=== PATIENT | female | born 1970 | race African-American/Black ===

== ENCOUNTER → 2019-03-17 10:01 | Outpatient (CLI) | payer OTHER, SELFPAY ==
[2016-04-08 16:24] VITALS: BMI 36.5
== END ==
PROVIDERS: Family Provider Family Medicine; PCP Family Medicine; Referring Provider Family Medicine; Visit Provider Family Medicine
DX: H05.20 Unspecified exophthalmos (principal)
CPT/HCPCS: 36415

== ENCOUNTER 2021-02-06 08:41 | Emergency (ER) | payer OTHER, SELFPAY ==
[2021-02-06 08:42] VITALS: BP 133/91; PULSE 143; RESP 20; TEMP 35.6; O2SAT 100; BMI 37.8
--- NOTE | 2021-02-06 08:58 | EKG12_ITS ---
Test Reason : SOB Blood Pressure : / mmHG Vent. Rate : 124 BPM Atrial Rate : 124 BPM P-R Int : 134 ms QRS Dur : 078 ms QT Int : 308 ms P-R-T Axes : 069 043 -89 degrees QTc Int : 442 ms Sinus tachycardia Nonspecific T wave abnormality Abnormal ECG Confirmed by LUNA HILL, ROMY ([id number]), field map editor WING SONI ([id number]) on 02/08/2021 9:41:44 AM Referred By: TRINITY Confirmed By:ROMY CARRASCO MD
--- NOTE | 2021-02-06 08:59 | EDS_ITS ---
HPI History of Present Illness Chief Complaint: Cough Informant: patient Narrative Narrative: 50-year-old female presents to the emergency department reporting that she has been ill since . She went to work on and had a rapid Covid that was negative. She has developed body aches headache fever chills diarrhea cough shortness of breath. She notes nausea and has not had much to eat the past several days. She did receive a Covid vaccine. PFSH PFSH Home Medications acetaminophen-codeine 5 ml PO Q4H PRN 3 Days #100 ml 02/06/21 [Rx Last Taken Unknown] albuterol sulfate [Ventolin HFA] 2 puff INHALATION Q4H PRN PRN #1 inhaler 02/06/21 [Rx Last Taken Unknown] Allergy/AdvReac Type Severity Reaction Status Date / Time tetanus and diphtheria Allergy Swelling Verified 02/06/21 08:45 toxoids [tetanus & diphtheria toxoids] Social History (Updated 02/06/21 @ 09:[address] Lisandro Mayo, DO) Smoking Status: Never smoker substance use type: does not use ROS ROS ED Constitutional Constitutional ED: Reports chills, fever(s) and sweats; Denies weight loss Eyes Eyes: Denies change in vision or diplopia ENT ENT ED: Reports rhinorrhea; Denies ear pain or sore throat Cardiovascular Cardiovascular: Denies chest pain, orthopnea, palpitations or racing heartbeat Respiratory/Chest Respiratory/Chest: Reports cough, dyspnea, dyspnea on exertion and sputum; Denies orthopnea Gastrointestinal Gastrointestinal: Reports diarrhea and nausea; Denies abdominal pain or vomiting Genitourinary Genitourinary ED: Denies dysuria, hematuria or urinary frequency Musculoskeletal Musculoskeletal: Reports myalgias; Denies arthralgias Integumentary Denies abscess or rash Neurologic Neurologic: Reports headache(s); Denies weakness Psychiatric Psychiatric: Denies anxiety, depression, suicidal ideation or suicidal thoughts Endocrine Endocrinology: Denies polydipsia, polyphagia or polyuria Allergic/Immunologic Allergic/Immunologic ED: Denies mouth swelling, tongue swelling or urticaria EXAM Physical Exam Const Vital Signs: 02/06/21 08:42 02/06/21 09:15 02/06/21 09:17 Temperature 96.0 F L Temperature Source Temporal Pulse Rate 143 H 140 H Respiratory Rate 20 H 32 H Respiratory Effort Short of Breath Respiratory Pattern Tachypnea Blood Pressure 133/91 H 102/75 Blood Pressure Mean 105 84 Pulse Ox 100 100 Oxygen Delivery Method Room Air Room Air Room Air Positive well nourished, well developed and obese General Appearance ED: well developed Nutritional Appearance: obese HEENT Reports normocephalic, head/scalp atraumatic, TM's clear and moist mucous membranes Negative for trauma Tympanic Membrane ED: Yes TM's clear Eyes PERRL and EOMs intact bilaterally Neck no lymphadenopathy, supple and no JVD Resp Resp Narrative: Patient is tachypneic having coughing fits Auscultation: rhonchi and wheezes Cardio regular rate and no murmurs Rate: tachycardic GI normal to inspection, nondistended, normoactive bowel sounds and non-tender Palpation: soft Back/Spine no CVA tenderness and normal ROM Extremity normal to inspection General Extremety ED: Negative for edema General Extremity: Negative for edema Neuro oriented x3 and CN's II-XII intact bilaterally Sensorium / Orientation: alert Motor Exam: strength 5/5 throughout Psych mental status grossly normal Mood & Affect: Negative for depressed or tearful Skin no rashes or lesions noted and no wounds MDM MDM MDM Narrative Medical decision making narrative: Basic blood work showed a white count of 5.9 hemoglobin 10.8 lactic acid is 2.2 creatinine 1.16 chest x-ray is clear. Patient received IV fluids Toradol a DuoNeb and a dose of Ativan. Patient was experiencing muscle spasms of her abdomen and could not relax. I do not think the lactic acid represents sepsis I think it is more of the motor activity she was doing. Patient be discharged home however write for albuterol MDI with spacer and time with codeine she declines monoclonal antibody treatment. Lab Data Attestation: I reviewed the patient's lab results. Labs: Laboratory Results - last 24 hr 02/06/21 02/06/21 02/06/21 09:05 09:05 09:05 WBC 5.9 RBC 3.70 L Hgb 10.8 L Hct 29.8 L MCV 80.5 L MCH 29.2 MCHC 36.2 H RDW Std Deviation 46.6 H RDW Coeff of Gloria 15.9 H Plt Count 163 MPV 9.3 Immature Gran % (Auto) 0.300 Neut % (Auto) 62.4 Lymph % (Auto) 27.0 [place] % (Auto) 10.1 H Eos % (Auto) 0.0 Baso % (Auto) 0.2 Absolute Neuts (auto) 3.7 Absolute Lymphs (auto) 1.58 Nucleated RBC % 0 Sodium 136 Potassium 3.5 Chloride 102 Carbon Dioxide 24.0 Anion Gap 10 BUN 11 Creatinine 1.16 H Estim Creat Clear Calc 50.10 Est GFR (MDRD) Af Amer 63 Est GFR (MDRD) Non-Af 52 L BUN/Creatinine Ratio 9.5 L Glucose 121 H Lactic Acid 2.2 H* Calcium 8.9 Total Bilirubin 1.30 H AST 29 ALT 20 Alkaline Phosphatase 59 Troponin I High Sens 9 Total Protein 8.8 H Albumin 3.8 Globulin 5.0 H Albumin/Globulin Ratio 0.8 L Radiography Diagnostic Testing: Clinical Impression(s) from Imaging Studies Chest X-Ray 02/06/21 09:26 IMPRESSION: Normal x-ray examination of the chest. Electronically Signed: Chico Belle MD at 9:57 EDT Tel , Service support , EKG Initial EKG: Attestation: I personally reviewed and interpreted this EKG as follows: Comments: Sinus tachycardia with a ventricular rate of 124 bpm Discharge Plan Triage Chief Complaint: Cough ED Provider: Lisandro Mayo Dx/Rx/DC Orders Clinical Impression: COVID-19 Instructions: Coronavirus Disease 2019 (COVID-19): Caring for Yourself or Others Prescriptions: New albuterol sulfate [Ventolin HFA] 1 INHALER inhaler 2 puff inhalation Q4H PRN PRN (Reason: Wheezing) Qty: 1 RF: 0 acetaminophen-codeine 120 mg-12 mg /5 mL (5 mL) solution 5 ml PO Q4H PRN (Reason: pain) 3 Days Qty: 100 RF: 0 Primary Care Provider: Eduin Cortez Referrals: Isaac Monsivais III, MD [STAFF PHYSICIAN] - Activity Restrictions/Additional Instructions: Follow-up with your primary care physician as needed. Disposition Disposition: Home, Self Care
[2021-02-06] MEDS: Ipratropium/Albuterol Sulfate 3 ML AMPUL.NEB INHALATION (09:13)
[2021-02-06] MEDS: 0.9% Normal Saline 1,000 ML 1000 ML IV (09:13)
[2021-02-06] MEDS: Ketorolac 30 MG/ML Syringe IV (09:13)
[2021-02-06 09:14] LABS: Absolute Lymphocyte Count 1.58 X10^3/uL (0.83-4.51); Absolute Neutrophil Count 3.7 X10^3/uL (2.0-7.7); Basophil# 0.01 X10^3/uL; Basophil% 0.2 % (0-1); Hematocrit 29.8 % (37-47); Hemoglobin 10.8 g/dL (12.0-15.0); Lymphocyte # 1.58 X10^3/ul (0.83-4.51); Mean Corp Hgb Conc 36.2 g/dL (32-36); Mean Corpuscular Hgb 29.2 pg (27.0-32.0); Mean Corpuscular Volume 80.5 fL (81-99); Mean Platelet Vol. 9.3 fl (6.2-12.0); Monocyte# 0.59 X10^3/uL; Monocyte% 10.1 % (0-10); NRBC Flagged by Analyzer 0 % (0-5); Neutrophil # 3.65 X10^3/uL (2.7-7.7); Neutrophil % 62.4 % (47-70); Platelet Count 163 K/mm3 (150-450); RBC Distribution Width CV 15.9 % (11.6-14.6); RBC Distribution Width SD 46.6 fl (35.1-43.9); White Blood Count 5.9 K/mm3 (4.4-11.0)
[2021-02-06 09:15] VITALS: BP 102/75; PULSE 122; PULSE 140; RESP 20; RESP 32; O2SAT 100
[2021-02-06 09:17] VITALS: O2SAT 100
--- NOTE | 2021-02-06 09:26 | RAD_ITS ---
STUDY: X-RAY CHEST REASON FOR EXAM: Female, 50 years old. cough TECHNIQUE: Single AP portable view of the chest. COMPARISON: 06/06/2014 FINDINGS: The lungs are clear and expanded. There is no demonstrated pleural abnormality. Normal size heart. Normal mediastinum and dominic. Normal visualized pulmonary arteries. Normal visualized aortic arch and descending thoracic aorta. Normal visualized thoracic spine. Normal visualized ribs, clavicles, and shoulders. There is no demonstrated abnormality of the visualized soft tissue structures of the upper abdomen. RAD/Chest 1 View (Portable) IMPRESSION: Normal x-ray examination of the chest. Electronically Signed: Chico Belle MD at 9:57 EDT Tel , Service support ,
[2021-02-06 09:32] LABS: ALB/GLOB Ratio 0.8 RATIO (0.9-2.4); AST(SGOT) 29 U/L (15-37); Alanine Aminotransfer ALT/SGPT 20 U/L (13-56); Albumin, Serum 3.8 g/dL (3.2-5.0); Alkaline Phosphatase 59 U/L (45-117); Anion Gap 10 (5-15); BUN 11 mg/dL (7-18); BUN/Creat Ratio 9.5 RATIO (10-20); Calcium,Total 8.9 mg/dL (8.5-10.1); Chloride 102 mmol/L (98-107); Creatinine, Serum 1.16 mg/dL (0.55-1.02); EST Glomerular Filtration Rate 52 mL/min (>60); Est Glom Filt Rate - Afr Amer 63 mL/min (>60); Glucose 121 mg/dL (74-106); Potassium 3.5 mmol/L (3.5-5.1); Protein, Total 8.8 g/dL (6.4-8.2); Sodium Level 136 mmol/L (136-145); Troponin-I HS 9 pg/mL (3.0-54.0)
[2021-02-06 09:37] LABS: Lactic Acid 2.2 mmol/L (0.4-1.9)
[2021-02-06] MEDS: LORazepam 2 MG/ML Syringe 1 MG IV (09:55)
[2021-02-06 10:14] VITALS: BP 127/75; PULSE 115; RESP 19; O2SAT 91
[2021-02-06 13:11] LABS: Reflex Lactate? Y
== END 2021-02-06 10:14 | disposition home or self-care (01) ==
PROVIDERS: Emergency Provider Emergency Medicine; PCP Family Medicine
DX: U07.1 COVID-19 (principal); E66.9 Obesity, unspecified
CPT/HCPCS: 71045; 80053; 83605; 84484; 85025; 87426; 93005; 94640; 96374; 96375; 99284; J7030; A4216

== ENCOUNTER 2021-02-18 11:24 | Inpatient (IN) | payer OTHER, SELFPAY ==
[2021-02-18] VITALS (11 sets, daily range): BP systolic 107–137; BP diastolic 55–74; PULSE 110–135; RESP 17–20; TEMP 35.8–38.7; O2SAT 93–100; BMI 40.5; BMI 36.6
--- NOTE | 2021-02-18 11:53 | CT_ITS ---
STUDY: CTA CHEST REASON FOR EXAM: Female, 50 years old. Chest pain, covid RADIATION DOSAGE (If Supplied By Facility): CTDIvol = ( 11.84 ) mGy, DLP = ( 372.65 ) mGycm TECHNIQUE: The examination was performed with the intravenous administration of IV 100ML ISOVUE 370. Post-processing of the angiographic images was performed, with multiplanar reformation and 3D reconstruction. Individualized dose optimization techniques were used for this CT. COMPARISON: Comparison is made with prior study dated 06/06/2014. FINDINGS: Normal enhancement of the main pulmonary artery and right and left pulmonary arteries. Normal enhancement of the bilateral peripheral pulmonary arteries. There is no demonstrated pulmonary embolism. Normal thoracic aorta and visualized great vessels. There is no demonstrated aortic dissection. Normal heart and pericardium. Normal mediastinum. Normal hilar regions. Normal visualized trachea and bronchi. The lungs are well expanded. Consolidation in the right lower lobe. Patchy infiltrate in the left lower lobe. Tiny bilateral pleural effusions. Normal chest wall structures. There are degenerative changes of thoracic spine. Normal visualized upper abdomen. CT/CTA Chest W/WO Contrast IMPRESSION: Bibasilar infiltrates more prominent on the right lung base. Tiny bilateral pleural effusions. Electronically Signed: Germán Luther MD at 13:44 EST , Service support ,
--- NOTE | 2021-02-18 11:53 | EKG12_ITS ---
Test Reason : SOB Blood Pressure : / mmHG Vent. Rate : 123 BPM Atrial Rate : 123 BPM P-R Int : 152 ms QRS Dur : 074 ms QT Int : 300 ms P-R-T Axes : 065 035 -72 degrees QTc Int : 429 ms Sinus tachycardia T wave abnormality, consider inferior ischemia T wave abnormality, consider anterolateral ischemia Abnormal ECG Confirmed by ASIYA HILL, NATALIYA ([id number]), supervising editor trailer WING SONI ([id number]) on 02/21/2021 11:23:19 AM Referred By: [facility] Confirmed By:NATALIYA BRADEN MD
--- NOTE | 2021-02-18 11:55 | EDS_ITS ---
HPI History of Present Illness Chief Complaint: Shortness of Breath Informant: patient Onset/Context/Timing Onset: Days Context: Gradual Onset Current Severity: Moderate Maximum Severity: Severe Narrative Narrative: Patient present secondary to chest pain and shortness of breath. Patient tested positive for Covid on February 06. She states her last several days she started monitoring her temperature and noted it to be mildly elevated. Last several days she has had right upper chest pain and increased shortness of breath. She reports mild cough with occasional clear sputum production. She does report some nausea. [facility] Medical History COVID Pneumonia Home Medications acetaminophen-codeine 5 ml PO Q4H PRN 3 Days #100 ml 02/06/21 [Rx Last Taken Unknown] albuterol sulfate [Ventolin HFA] 2 puff INHALATION Q4H PRN PRN #1 inhaler 02/06/21 [Rx Last Taken Unknown] Allergy/AdvReac Type Severity Reaction Status Date / Time tetanus and diphtheria Allergy Swelling Verified 02/18/21 11:38 toxoids [tetanus & diphtheria toxoids] Iodinated Contrast Media AdvReac Mild Vomiting Verified 02/18/21 13:28 Social History Smoking Status: Never smoker substance use type: does not use ROS ROS ED Constitutional Constitutional ED: Reports fever(s); Denies chills Eyes Eyes: Denies change in vision ENT ENT ED: Denies sore throat Cardiovascular Cardiovascular: Reports chest pain Respiratory/Chest Respiratory/Chest: Reports cough, dyspnea and sputum Gastrointestinal Gastrointestinal: Reports nausea; Denies abdominal pain, diarrhea or vomiting Genitourinary Genitourinary ED: Denies dysuria Musculoskeletal Musculoskeletal: Reports back pain Integumentary Denies rash Neurologic Neurologic: Denies headache(s) or weakness Allergic/Immunologic Allergic/Immunologic ED: Denies urticaria EXAM Physical Exam Const Vital Signs: 02/18/21 11:26 02/18/21 11:39 02/18/21 13:39 Temperature 96.5 F L 98.9 F Temperature Source Temporal Temporal Pulse Rate 135 H 117 H Respiratory Rate 18 20 H Respiratory Effort Normal Respiratory Depth Normal Respiratory Pattern Normal Blood Pressure 137/70 H 121/73 H Blood Pressure Mean 92 89 Pulse Ox 96 94 Oxygen Delivery Method Room Air Room Air Oxygen Flow Rate (L/min) 02/18/21 15:11 Temperature 98.9 F Temperature Source Temporal Pulse Rate 123 H Respiratory Rate 20 H Respiratory Effort Respiratory Depth Respiratory Pattern Blood Pressure 116/66 Blood Pressure Mean 82 Pulse Ox 100 Oxygen Delivery Method Nasal Cannula Oxygen Flow Rate (L/min) 2 Positive well nourished and well developed General Appearance ED: well developed HEENT Reports moist mucous membranes Eyes PERRL and EOMs intact bilaterally Neck supple Chest Wall inspection of chest normal and palpation of chest normal Resp normal respiratory effort and clear to auscultation bilaterally Cardio regular rhythm Rate: tachycardic GI normal to inspection, nondistended, normoactive bowel sounds and non-tender Palpation: soft Extremity normal to inspection Neuro oriented x3 Sensorium / Orientation: alert Psych mental status grossly normal Skin no rashes or lesions noted MDM MDM MDM Narrative Medical decision making narrative: Lab work, EKG, CTA of the chest obtained. Patient was given morphine and Zofran for pain. Lab Data Attestation: I reviewed the patient's lab results. Labs: Laboratory Results - last 24 hr 02/18/21 02/18/21 02/18/21 12:14 12:14 12:14 WBC 12.0 H RBC 2.95 L Hgb 7.8 L Hct 23.0 L MCV 78.0 L MCH 26.4 L MCHC 33.9 RDW Std Deviation 52.5 H RDW Coeff of Gloria 18.8 H Plt Count 375 MPV 9.5 Immature Gran % (Auto) 0.600 Neut % (Auto) 83.4 H Lymph % (Auto) 9.[address] [facility] % (Auto) 6.6 Eos % (Auto) 0.2 Baso % (Auto) 0.2 Absolute Neuts (auto) 10.0 H Absolute Lymphs (auto) 1.08 Nucleated RBC % 0 Sodium 134 L Potassium 3.5 Chloride 101 Carbon Dioxide 30.0 Anion Gap 3 L BUN 11 Creatinine 1.07 H Estim Creat Clear Calc 47.46 Est GFR (MDRD) Af Amer 70 Est GFR (MDRD) Non-Af 58 L BUN/Creatinine Ratio 10.3 Glucose 119 H Lactic Acid 1.2 Calcium 8.8 Total Bilirubin 2.10 H AST 14 L ALT 10 L Alkaline Phosphatase 51 Troponin I High Sens 4 Total Protein 8.4 H Albumin 2.8 L Globulin 5.6 H Albumin/Globulin Ratio 0.5 L Radiography Diagnostic Testing: Clinical Impression(s) from Imaging Studies Chest CTA 02/18/21 11:53 IMPRESSION: Bibasilar infiltrates more prominent on the right lung base. Tiny bilateral pleural effusions. Electronically Signed: Germán Luther MD at 13:44 EST , Service support , EKG Initial EKG: Attestation: I personally reviewed and interpreted this EKG as follows: Interpretation: Sinus Tachycardia (Sinus tachycardia at 123 bpm. Lateral and inferior T inversions noted. No prior studies available for comparison.) Treatment and Re-Evaluation Comments:: Patient's lab work does reveal increased white count. Hemoglobin is noted to have dropped 3 g in the last 2 weeks. Chemistry studies unremarkable. Lactic acid normal. Troponin negative. CTA reveals bibasilar infiltrates worse on the right and tiny bilateral pleural effusions. With patient having elevated white count and a more focal infiltrate in the right base I did cover her with Rocephin and Zithromax. When I went back to reexamine the patient her oxygen saturation was 88% on room air. She was placed on nasal cannula and O2 sats came back up into the high 90s. Patient was taken off oxygen to go to the bedside commode. With this exertion she dropped her sats out into the 80s and did not quickly recover requiring placement of oxygen again. At this time I will speak with hospitalist. Discharge Plan Triage Chief Complaint: Shortness of Breath ED Provider: Lorena Jordan Dx/Rx/DC Orders Clinical Impression: Pneumonia, Hypoxia, COVID-19 Prescriptions: No Action albuterol sulfate [Ventolin HFA] 1 INHALER inhaler 2 puff inhalation Q4H PRN PRN (Reason: Wheezing) Qty: 1 RF: 0 acetaminophen-codeine 120 mg-12 mg /5 mL (5 mL) solution 5 ml PO Q4H PRN (Reason: pain) 3 Days Qty: 100 RF: 0 Primary Care Provider: Eduin Cortez Referrals: Eduin Cortez MD [Primary Care Provider] - Disposition Disposition: Acute Care [facility]
[2021-02-18] MEDS: Morphine 4 MG/ML Syringe IV (12:21)
[2021-02-18] MEDS: Ondansetron 4 MG/2 ML Vial IV ×2 (12:21→13:48)
[2021-02-18 12:46] LABS: Absolute Lymphocyte Count 1.08 X10^3/uL (0.83-4.51); Basophil# 0.02 X10^3/uL; Basophil% 0.2 % (0-1); Eosinophil# 0.02 X10^3/uL; Eosinophils% 0.2 % (0-5); Hemoglobin 7.8 g/dL (12.0-15.0); Lymphocyte # 1.08 X10^3/ul (0.83-4.51); Mean Corp Hgb Conc 33.9 g/dL (32-36); Mean Corpuscular Hgb 26.4 pg (27.0-32.0); Mean Platelet Vol. 9.5 fl (6.2-12.0); Monocyte# 0.79 X10^3/uL; Monocyte% 6.6 % (0-10); NRBC Flagged by Analyzer 0 % (0-5); Neutrophil # 10.04 X10^3/uL (2.7-7.7); Neutrophil % 83.4 % (47-70); Platelet Count 375 K/mm3 (150-450); RBC Distribution Width CV 18.8 % (11.6-14.6); RBC Distribution Width SD 52.5 fl (35.1-43.9); Red Blood Count 2.95 M/mm3 (4.2-5.4)
[2021-02-18 13:03] LABS: ALB/GLOB Ratio 0.5 RATIO (0.9-2.4); AST(SGOT) 14 U/L (15-37); Alanine Aminotransfer ALT/SGPT 10 U/L (13-56); Albumin, Serum 2.8 g/dL (3.2-5.0); Alkaline Phosphatase 51 U/L (45-117); Anion Gap 3 (5-15); BUN 11 mg/dL (7-18); BUN/Creat Ratio 10.3 RATIO (10-20); Calcium,Total 8.8 mg/dL (8.5-10.1); Chloride 101 mmol/L (98-107); Creatinine, Serum 1.07 mg/dL (0.55-1.02); EST Glomerular Filtration Rate 58 mL/min (>60); Est Glom Filt Rate - Afr Amer 70 mL/min (>60); Estimated Creatinine Clearance 47.46 ml/min; Globulin 5.6 g/dL (2.2-4.2); Glucose 119 mg/dL (74-106); Potassium 3.5 mmol/L (3.5-5.1); Protein, Total 8.4 g/dL (6.4-8.2); Sodium Level 134 mmol/L (136-145); Troponin-I HS 4 pg/mL (3.0-54.0)
[2021-02-18 13:07] LABS: Lactic Acid 1.2 mmol/L (0.4-1.9)
[2021-02-18] MEDS: HYDROmorphone 0.5 MG/0.5 ML SYRINGE IV (13:48)
[2021-02-18] MEDS: Ceftriaxone 1 GM/50 ML BAG IV (14:25)
--- NOTE | 2021-02-18 17:25 | PCS.PANDOC ---
PANDEMIC DOCUMENTATION INITIATED: Date:02/18/2021 Time: 1700
[2021-02-18] MEDS: Acetaminophen 325 MG Tablet 650 MG PO (17:46)
--- NOTE | 2021-02-18 18:19 | HP.PCM.HOS_ITS ---
HPI - General General Date of Admission: 02/18/21 HPI Narrative MIGUEL ANGEL REYES, is a 50 F who presents to the hospital with worsening shortness of breath, cough, and chest pain. She was diagnosed with Covid on 02/06/2021 with symptoms starting on 02/03/2021. At that time she was not hypoxic. She was offered monoclonal antibody infusion which she refused. She also is unvaccinated. For the last several days she has noticed that she has become more short of breath and that she had been having mildly elevated temperatures. She also has been having some chest pain in the right upper chest likely consistent with costochondritis secondary to all the coughing. She has had very little sputum production but what she has produces been clear. In the ER she was found to be hypoxic to 88% on room air and then with ambulation on room air she also dropped into the 80s as well necessitating 2 L of nasal cannula to be placed. [facility] Medical History (Updated 02/18/21 @ 18:[address] Charles Lee MD) Anemia COVID Migraines Non-smoker Pancreatitis Pneumonia Home Medications acetaminophen-codeine 5 ml PO Q4H PRN 3 Days #100 ml 02/06/21 [Rx Last Taken Unknown] albuterol sulfate [Ventolin HFA] 2 puff INHALATION Q4H PRN PRN #1 inhaler 02/06/21 [Rx Last Taken Unknown] Allergy/AdvReac Type Severity Reaction Status Date / Time tetanus and diphtheria Allergy Swelling Verified 02/18/21 11:38 toxoids [tetanus & diphtheria toxoids] Iodinated Contrast Media AdvReac Mild Vomiting Verified 02/18/21 13:28 Family History (Updated 02/18/21 @ 18:[address] Charles Lee MD) Other Cancer Heart disease Surgical History (Updated 02/18/21 @ 18:[address] Charles Lee MD) History of cholecystectomy Status post hysterectomy Social History Smoking Status: Never smoker substance use type: does not use ROS Constitutional Constitutional: Reports fever(s); Denies chills, fatigue or malaise Eyes Eyes: Denies blurry vision ENT HEENT: Denies headache(s) or nasal discharge Cardiovascular Cardiovascular: Reports chest pain; Denies dyspnea on exertion or syncope Respiratory/Chest Respiratory/Chest: Reports cough and shortness of breath at rest; Denies shortness of breath with exertion Gastrointestinal Gastrointestinal: Denies constipation, diarrhea, nausea or vomiting Genitourinary Genitourinary: Denies dysuria Neurologic Neurologic: Denies focal weakness, numbness or tremor(s) Psychiatric Psychiatric: Denies anxiety or depression Vital Signs Vital Signs Vital Signs: 02/18/21 11:26 02/18/21 11:39 02/18/21 13:39 Temperature 96.5 F L 98.9 F Temperature Source Temporal Temporal Pulse Rate 135 H 117 H Respiratory Rate 18 20 H Respiratory Effort Normal Respiratory Depth Normal Respiratory Pattern Normal Blood Pressure 137/70 H 121/73 H Blood Pressure Mean 92 89 Blood Pressure Source Blood Pressure Position Blood Pressure Location Pulse Ox 96 94 Oxygen Delivery Method Room Air Room Air Oxygen Flow Rate (L/min) 02/18/21 15:11 02/18/21 15:58 02/18/21 17:06 Temperature 98.9 F 98.9 F 99.6 F H Temperature Source Temporal Oral Temporal Pulse Rate 123 H 120 H 115 H Respiratory Rate 20 H 20 H 17 Respiratory Effort Respiratory Depth Respiratory Pattern Blood Pressure 116/66 111/72 118/74 Blood Pressure Mean 82 85 88 Blood Pressure Source Blood Pressure Position Blood Pressure Location Pulse Ox 100 100 100 Oxygen Delivery Method Nasal Cannula Room Air Nasal Cannula Oxygen Flow Rate (L/min) 2 2 2 02/18/21 17:57 Temperature 101.6 F H Temperature Source Oral Pulse Rate 116 H Respiratory Rate 18 Respiratory Effort Respiratory Depth Respiratory Pattern Blood Pressure 110/64 Blood Pressure Mean 79 Blood Pressure Source Monitor Blood Pressure Position Semi-Fowlers Blood Pressure Location Right Arm Pulse Ox 100 Oxygen Delivery Method Nasal Cannula Oxygen Flow Rate (L/min) 2 Weight Weight: 216 lb 12.8 oz Body Mass Index (BMI) 36.6 Physical Exam Const alert, oriented x3 and no apparent distress General Appearance: cooperative HEENT normocephalic Mouth: dry mucous membranes Eyes PERRL, EOMs intact bilaterally and conjunctivae normal Neck supple and no JVD Resp normal respiratory effort, no retractions and no use of accessory muscles Auscultation: diminished lung sounds; Negative for crackles, rales, rhonchi or wheezes Cardio regular rhythm, S1 normal heart sound, S2 normal heart sound and no murmurs Rate: tachycardic GI soft to palpation, non-tender and non-distended; Negative for hepatosplenomegaly Extremity no clubbing, cyanosis or edema Skin no rashes or lesions noted Neuro no focal motor deficits and no sensory deficits noted Psych affect normal Appearance: appropriate Results Lab / Micro Data Result Diagrams: 02/19/21 05:27 02/19/21 05:27 Labs: Laboratory Results - last 24 hr 02/18/21 12:14: WBC 12.0 H, RBC 2.95 L, Hgb 7.8 L, Hct 23.0 L, MCV 78.0 L, MCH 26.4 L, MCHC 33.9, RDW Std Deviation 52.5 H, RDW Coeff of Gloria 18.8 H, Plt Count 375, MPV 9.5, Immature Gran % (Auto) 0.600, Neut % (Auto) 83.4 H, Lymph % (Auto) 9.0 L, [place] % (Auto) 6.6, Eos % (Auto) 0.2, Baso % (Auto) 0.2, Absolute Neuts (auto) 10.0 H, Absolute Lymphs (auto) 1.08, Nucleated RBC % 0 02/18/21 12:14: Sodium 134 L, Potassium 3.5, Chloride 101, Carbon Dioxide 30.0, Anion Gap 3 L, BUN 11, Creatinine 1.07 H, Estim Creat Clear Calc 47.46, Est GFR (MDRD) Af Amer 70, Est GFR (MDRD) Non-Af 58 L, BUN/Creatinine Ratio 10.3, Glucose 119 H, Calcium 8.8, Total Bilirubin 2.10 H, AST 14 L, ALT 10 L, Alkaline Phosphatase 51, Troponin I High Sens 4, Total Protein 8.4 H, Albumin 2.8 L, Globulin 5.6 H, Albumin/Globulin Ratio 0.5 L 02/18/21 12:14: Lactic Acid 1.2 Radiology Impression Chest CTA 02/18/21 11:53 IMPRESSION: Bibasilar infiltrates more prominent on the right lung base. Tiny bilateral pleural effusions. Electronically Signed: Germán Luther MD at 13:44 EST , Service support , Assessment & Plan Assessment/Plan (1) Acute respiratory failure with hypoxia: (2) Pneumonia due to COVID-19 virus: PLAN: 1. Acute hypoxic respiratory failure secondary to COVID-19 pneumonia with possible bacterial superinfection and new undifferentiated anemia -We will obtain a sputum culture and start her on azithromycin and Rocephin given the fact that she had been stable and then suddenly worsened over the last 3 days with fevers and an elevated white count -She is outside the window for remdesivir and is not severe enough to warrant baricitinib. We will start her on Decadron -Continue with nasal cannula at 2 L, and will do an ambulatory pulse ox in the morning -We will obtain iron studies to further evaluate her anemia and monitor DVT: Lovenox Charges/Coding Visit Charges Inpatient E&M: 29963 Init Hosp L2
[2021-02-18 19:26] LABS: Ferritin 505 ng/mL (8-252); Iron 23 ug/dL (50-170); Iron Binding Capacity,Total 187 ug/dL (250-450); PERCENT IRON SATURATION 12.3 % (15.0-55.0)
[2021-02-18] MEDS: Enoxaparin 40 MG/0.4 ML Syringe SC (20:31)
[2021-02-18] MEDS: guaiFENesin 10 ML UDC (200MG/10ML) PO (22:41)
[2021-02-18] MEDS: MELATONIN 3 MG TABLET PO (22:54)
[2021-02-19] VITALS (13 sets, daily range): BP systolic 103–131; BP diastolic 54–71; PULSE 94–124; RESP 16–20; TEMP 36.7–38.9; O2SAT 91–98
[2021-02-19] MEDS: Acetaminophen 325 MG Tablet 650 MG PO ×2 (02:43→11:10)
[2021-02-19] MEDS: guaiFENesin 10 ML UDC (200MG/10ML) PO ×2 (02:43→11:10)
[2021-02-19 06:12] LABS: Absolute Lymphocyte Count 1.18 X10^3/uL (0.83-4.51); Absolute Neutrophil Count 10.2 X10^3/uL (2.0-7.7); Basophil# 0.02 X10^3/uL; Basophil% 0.2 % (0-1); Eosinophil# 0.02 X10^3/uL; Eosinophils% 0.2 % (0-5); Hematocrit 19.6 % (37-47); Hemoglobin 6.7 g/dL (12.0-15.0); Lymphocyte # 1.18 X10^3/ul (0.83-4.51); Lymphocyte % 9.6 % (19-41); Mean Corp Hgb Conc 34.2 g/dL (32-36); Mean Corpuscular Hgb 26.6 pg (27.0-32.0); Mean Corpuscular Volume 77.8 fL (81-99); Mean Platelet Vol. 9.4 fl (6.2-12.0); Monocyte# 0.82 X10^3/uL; Monocyte% 6.7 % (0-10); NRBC Flagged by Analyzer 0 % (0-5); Neutrophil # 10.19 X10^3/uL (2.7-7.7); Neutrophil % 82.8 % (47-70); Platelet Count 317 K/mm3 (150-450); RBC Distribution Width SD 54.1 fl (35.1-43.9); Red Blood Count 2.52 M/mm3 (4.2-5.4); White Blood Count 12.3 K/mm3 (4.4-11.0)
[2021-02-19 06:45] LABS: Anion Gap 6 (5-15); BUN 11 mg/dL (7-18); BUN/Creat Ratio 10.5 RATIO (10-20); Calcium,Total 8.7 mg/dL (8.5-10.1); Chloride 99 mmol/L (98-107); Creatinine, Serum 1.05 mg/dL (0.55-1.02); EST Glomerular Filtration Rate 59 mL/min (>60); Est Glom Filt Rate - Afr Amer 71 mL/min (>60); Estimated Creatinine Clearance 55.35 ml/min; Glucose 123 mg/dL (74-106); Potassium 3.8 mmol/L (3.5-5.1); Sodium Level 134 mmol/L (136-145)
[2021-02-19 06:50] LABS: Platelet Count 333 K/mm3 (150-450); RET-HE 23.5 pg (30-35); Reticulocyte Count 4.08 % (0.5-1.5)
[2021-02-19 07:22] LABS: Ferritin 577 ng/mL (8-252); Iron 25 ug/dL (50-170); Iron Binding Capacity,Total 178 ug/dL (250-450); LDH 252 U/L (84-246)
[2021-02-19] MEDS: dexAMETHasone 4 MG Tablet 6 MG PO (11:18)
[2021-02-19] MEDS: Azithromycin 250 MG Tablet 500 MG PO (11:19)
[2021-02-19] MEDS: Ceftriaxone 1 GM/50 ML BAG IV (11:19)
[2021-02-19] MEDS: Enoxaparin 40 MG/0.4 ML Syringe SC (11:19)
--- NOTE | 2021-02-19 12:08 | CASEMGMT ---
OPAL DELGADILLO Assessment: Face to Face with pt for initial transition planning/care coordination assessment. OPAL DELGADILLO introduced self and role at [facility], pt voices understanding and consents to assessment. Pt is A/O x4 and answers all questions appropriately at this time. Pt lying in bed on RA in no distress. Care providers, pharmacy, and demographics verified/updated. Admitting Dx: COVID PCP:Diego Specialists: Pt denies. Preferred Pharmacy: [facility] Insurance: [employer] Prescription Benefit: yes LW/HPOA: Pt states she has a LW/DPOA and her DPOA is her son Jayro Kearney. LNOK: Jayro Kearney, lalo Living Arrangements: Pt lives alone in a two story townhouse with 6 steps to enter. Pt reports she is I in ADL's and denies concerns at home. Transportation: Pt drives self and denies concerns with transportation. DME/HHC/SNF: Pt denies having any DME, hx of HHC or SNF stays. Pt was first tested for COVID at [facility] ER, she states her friends have been providing her with meals and supplies needed. Unable to look up DME providers on pt insurance website and office closed when OPAL DELGADILLO called. Should pt be dc'd on home O2, she chooses [employer]. OPAL DELGADILLO will follow up on Sunday to see if in network. Pt states no concerns with going home at time of dc. Pt states no further concerns/needs. CM to follow. Advised pt to ask CM if any further question/concerns/needs arise, voices understanding. Pt Goal: Home Plan: Home
[2021-02-19] MEDS: Ibuprofen 200 MG Tablet PO ×3 (13:42→22:04)
--- NOTE | 2021-02-19 15:18 | PN.HOSP_ITS ---
Subjective Subjective Doing well, her hemoglobin has dropped further and orders for transfusion were placed overnight. Iron studies are low but indeterminant and further work-up for hemolytic anemia is underway Objective Data Objective Data Vital Signs: Vital Signs Temp Pulse Resp BP Pulse Ox 100.6 F H 115 H 16 123/63 H 93 02/19/21 13:39 02/19/21 13:39 02/19/21 13:39 02/19/21 13:39 02/19/21 13:39 Oxygen Flow Rate (L/min) 1 Oxygen Delivery Method Room Air Weight: 216 lb 12.8 oz Body Mass Index (BMI) 36.6 Intake & Output: Intake and Output for Last 24 Hours 02/18/21 02/19/21 02/20/21 03:59 03:59 03:59 Intake Total 305 / 305 578.5 / 578.5 Balance 305 / 305 578.5 / 578.5 Lab / Micro Data Result Diagrams: 02/19/21 05:27 02/19/21 05:27 Labs: Laboratory Results - last 24 hr 02/18/21 12:14: Iron 23 L, TIBC 187 L, Iron Saturation 12.3 L, Ferritin 505 H 02/19/21 05:27: WBC 12.3 H, RBC 2.52 L, Hgb 6.7 L, Hct 19.6 L, MCV 77.8 L, MCH 26.6 L, MCHC 34.2, RDW Std Deviation 54.1 H, RDW Coeff of Gloria 19.0 H, Plt Count 317, MPV 9.4, Immature Gran % (Auto) 0.500, Neut % (Auto) 82.8 H, Lymph % (Auto) 9.6 L, [place] % (Auto) 6.7, Eos % (Auto) 0.2, Baso % (Auto) 0.2, Absolute Neuts (auto) 10.2 H, Absolute Lymphs (auto) 1.18, Nucleated RBC % 0 02/19/21 05:27: Sodium 134 L, Potassium 3.8, Chloride 99, Carbon Dioxide 29.0, Anion Gap 6, BUN 11, Creatinine 1.05 H, Estim Creat Clear Calc 55.35, Est GFR (MDRD) Af Amer 71, Est GFR (MDRD) Non-Af 59 L, BUN/Creatinine Ratio 10.5, Glucose 123 H, Calcium 8.7 11/13/21 05:27: Retic Count 4.08 H, Immature Retic Fraction 21.30 H, Retic Hgb Equivalent 23.5 L 02/19/21 05:27: Iron 25 L, TIBC 178 L, Iron Saturation 14.0 L, Ferritin 577 H, Lactate Dehydrogenase 252 H, Folate 11.50 02/19/21 07:10: Blood Type A POSITIVE, Antibody Screen NEGATIVE, Crossmatch See Detail Physical Exam Const alert, oriented x3 and no apparent distress General Appearance: cooperative HEENT normocephalic Eyes PERRL, EOMs intact bilaterally and conjunctivae normal Neck supple and no JVD Resp normal respiratory effort, no retractions and no use of accessory muscles Auscultation: diminished lung sounds; Negative for crackles, rales, rhonchi or wheezes Cardio regular rhythm, S1 normal heart sound, S2 normal heart sound and no murmurs Rate: tachycardic GI soft to palpation, non-tender and non-distended; Negative for hepatosplenomegaly Extremity no clubbing, cyanosis or edema Skin no rashes or lesions noted Neuro no focal motor deficits and no sensory deficits noted Psych affect normal Appearance: appropriate Assessment & Plan Assessment/Plan (1) Acute respiratory failure with hypoxia: (2) Pneumonia due to COVID-19 virus: PLAN: 1. Acute hypoxic respiratory failure secondary to COVID-19 pneumonia with possible bacterial superinfection and new undifferentiated anemia -We will obtain a sputum culture and start her on azithromycin and Rocephin given the fact that she had been stable and then suddenly worsened over the last 3 days with fevers and an elevated white count -She is outside the window for remdesivir and is not severe enough to warrant baricitinib. We will start her on Decadron -Continue with nasal cannula at 2 L -Iron studies show a little bit of a mixed picture, her iron is low and so is her saturation but so is her TIBC. Her ferritin is elevated consistent with an inflammatory response -LDH is a little bit elevated, haptoglobin is pending. Total bilirubin is elevated so haptoglobin is low can obtain a Ele test and consult hematology -Stool studies and urinalysis are pending DVT: Lovenox Charges/Coding Visit Charges Inpatient E&M: 23533 Subs Hosp L2
[2021-02-19] MEDS: Polyethylene Glycol 3350 17 GM PACKET PO (15:46)
[2021-02-19 17:58] LABS: Mucous, Urine 0 SEEN /hpf (<or=2+); Red Blood Cells-Urine 0 SEEN /hpf (0-5)
[2021-02-19 18:00] LABS: Color, Urine Yellow (Yellow); Glucose, Dipstick 100 mg/dl (Normal); Ketone-Dipstick Negative (Negative); Leukocyte Esterase-Dipstick 25 /ul (Negative); Nitrite-Dipstick Negative (Negative); Occult Blood-Urine 10 /ul (Negative); Protein-Dipstick 100 mg/dl (Negative); Specific Gravity, Urine 1.015 (1.002-1.030); Urine Bilirubin Dipstick Negative (Negative); Urine Clarity Clear (Clear); Urine Urobilinogen 1 mg/dl (Normal)
[2021-02-19 18:06] LABS: Squamous Epithelial Cells - UA 0-5 SEEN /hpf (5-10); White Blood Cells 5-10 SEEN /hpf (0-5)
[2021-02-19 18:07] LABS: Bacteria 1+ /hpf (None Seen)
[2021-02-19] MEDS: Docusate Sodium 100 MG Capsule PO (21:29)
[2021-02-20 03:29] VITALS: BP 127/67; PULSE 86; RESP 18; TEMP 36.6; O2SAT 94
[2021-02-20 05:54] LABS: Absolute Lymphocyte Count 0.84 X10^3/uL (0.83-4.51); Absolute Neutrophil Count 12.9 X10^3/uL (2.0-7.7); Basophil# 0.01 X10^3/uL; Basophil% 0.1 % (0-1); Hematocrit 23.5 % (37-47); Hemoglobin 8.2 g/dL (12.0-15.0); Lymphocyte # 0.84 X10^3/ul (0.83-4.51); Lymphocyte % 5.8 % (19-41); Mean Corp Hgb Conc 34.9 g/dL (32-36); Mean Corpuscular Hgb 27.4 pg (27.0-32.0); Mean Corpuscular Volume 78.6 fL (81-99); Mean Platelet Vol. 9.3 fl (6.2-12.0); Monocyte# 0.62 X10^3/uL; Monocyte% 4.3 % (0-10); NRBC Flagged by Analyzer 0 % (0-5); Neutrophil # 12.88 X10^3/uL (2.7-7.7); Neutrophil % 89.2 % (47-70); Platelet Count 324 K/mm3 (150-450); RBC Distribution Width CV 18.7 % (11.6-14.6); RBC Distribution Width SD 54.5 fl (35.1-43.9); Red Blood Count 2.99 M/mm3 (4.2-5.4); White Blood Count 14.4 K/mm3 (4.4-11.0)
[2021-02-20 06:28] LABS: ALB/GLOB Ratio 0.4 RATIO (0.9-2.4); AST(SGOT) 9 U/L (15-37); Alanine Aminotransfer ALT/SGPT 9 U/L (13-56); Albumin, Serum 2.3 g/dL (3.2-5.0); Alkaline Phosphatase 54 U/L (45-117); Anion Gap 7 (5-15); BUN 15 mg/dL (7-18); BUN/Creat Ratio 15.4 RATIO (10-20); Calcium,Total 9.4 mg/dL (8.5-10.1); Chloride 104 mmol/L (98-107); Creatinine, Serum 0.97 mg/dL (0.55-1.02); EST Glomerular Filtration Rate 64 mL/min (>60); Est Glom Filt Rate - Afr Amer 78 mL/min (>60); Estimated Creatinine Clearance 59.92 ml/min; Globulin 5.8 g/dL (2.2-4.2); Glucose 127 mg/dL (74-106); Protein, Total 8.1 g/dL (6.4-8.2); Sodium Level 138 mmol/L (136-145)
[2021-02-20 09:30] VITALS: BP 131/59; PULSE 100; RESP 18; TEMP 36.6; O2SAT 98
--- NOTE | 2021-02-20 09:44 | PCM.PN.HOSP ---
Subjective Subjective Doing well, no issues overnight. Her hemoglobin is stabilized this morning and she feels better. Tolerated the transfusion just fine Objective Data Objective Data Vital Signs: Vital Signs Temp Pulse Resp BP Pulse Ox 97.9 F 86 18 127/67 H 94 02/20/21 03:29 02/20/21 03:29 02/20/21 03:29 02/20/21 03:29 02/20/21 03:29 Oxygen Flow Rate (L/min) 1 Oxygen Delivery Method Room Air Weight: 216 lb 11.43 oz Body Mass Index (BMI) 36.6 Intake & Output: Intake and Output for Last 24 Hours 02/19/21 02/20/21 02/21/21 03:59 03:59 03:59 Intake Total 305 / 305 2078.5 / 2078.5 300 / 300 Output Total 360 / 360 Balance 305 / 305 1718.5 / 1718.5 300 / 300 Lab / Micro Data Result Diagrams: 02/20/21 05:00 02/20/21 05:00 Labs: Laboratory Results - last 24 hr 02/19/21 07:10: Blood Type A POSITIVE, Antibody Screen NEGATIVE, Crossmatch See Detail 02/19/21 17:30: Urine Color Yellow, Urine Clarity Clear, Urine pH 5.0, Ur Specific [place] 1.015, Urine Protein 100 H, Urine Glucose (UA) 100 H, Urine Ketones Negative, Urine Occult Blood 10 H, Urine Nitrite Negative, Urine Bilirubin Negative, Urine Urobilinogen 1 H, Ur Leukocyte Esterase 25 H, Urine RBC 0 SEEN, Urine WBC 5-10 SEEN, Ur Squamous Epith Cells 0-5 SEEN, Urine Bacteria 1+, Urine Mucus 0 SEEN 02/20/21 05:00: WBC 14.4 H, RBC 2.99 L, Hgb 8.2 L, Hct 23.5 L, MCV 78.6 L, MCH 27.4, MCHC 34.9, RDW Std Deviation 54.5 H, RDW Coeff of Gloria 18.7 H, Plt Count 324, MPV 9.3, Immature Gran % (Auto) 0.600, Neut % (Auto) 89.2 H, Lymph % (Auto) 5.8 L, [place] % (Auto) 4.3, Eos % (Auto) 0.0, Baso % (Auto) 0.1, Absolute Neuts (auto) 12.9 H, Absolute Lymphs (auto) 0.84, Nucleated RBC % 0 02/20/21 05:00: Sodium 138, Potassium 4.0, Chloride 104, Carbon Dioxide 27.0, Anion Gap 7, BUN 15, Creatinine 0.97, Estim Creat Clear Calc 59.92, Est GFR (MDRD) Af Amer 78, Est GFR (MDRD) Non-Af 64, BUN/Creatinine Ratio 15.4, Glucose 127 H, Calcium 9.4, Total Bilirubin 0.80, AST 9 L, ALT 9 L, Alkaline Phosphatase 54, Total Protein 8.1, Albumin 2.3 L, Globulin 5.8 H, Albumin/Globulin Ratio 0.4 L Micro: Microbiology 02/18/21 12:13 Blood Culture (Wb) - Anticubital Left Blood Culture - Preliminary No growth in 48 hours. 02/18/21 12:30 Blood Culture (Wb) - Anticubital Right Blood Culture - Preliminary No growth in 48 hours. 02/19/21 21:30 Stool Stool Occult Blood ([facility]ANG) - Final Physical Exam Const alert, oriented x3 and no apparent distress General Appearance: cooperative HEENT normocephalic Eyes PERRL, EOMs intact bilaterally and conjunctivae normal Neck supple and no JVD Resp normal respiratory effort, no retractions and no use of accessory muscles Auscultation: diminished lung sounds; Negative for crackles, rales, rhonchi or wheezes Cardio regular rhythm, S1 normal heart sound, S2 normal heart sound and no murmurs Rate: tachycardic GI soft to palpation, non-tender and non-distended; Negative for hepatosplenomegaly Extremity no clubbing, cyanosis or edema Skin no rashes or lesions noted Neuro no focal motor deficits and no sensory deficits noted Psych affect normal Appearance: appropriate Assessment & Plan Assessment/Plan (1) Acute respiratory failure with hypoxia: (2) Pneumonia due to COVID-19 virus: PLAN: 1. Acute hypoxic respiratory failure secondary to COVID-19 pneumonia with possible bacterial superinfection and new undifferentiated anemia -We will obtain a sputum culture and start her on azithromycin and Rocephin given the fact that she had been stable and then suddenly worsened over the last 3 days with fevers and an elevated white count -She is outside the window for remdesivir and is not severe enough to warrant baricitinib. We will start her on Decadron -Continue with nasal cannula at 2 L -Iron studies show a little bit of a mixed picture, her iron is low and so is her saturation but so is her TIBC. Her ferritin is elevated consistent with an inflammatory response -LDH is a little bit elevated, haptoglobin is pending. Total bilirubin is elevated so if haptoglobin is low can obtain a Ele test and consult hematology. She states that she had seen hematology as an outpatient for a possible sickle cell trait -Stool studies are negative, urinalysis shows urobilinogen as well as occult blood and urine protein with no red blood cells DVT: Lovenox Charges/Coding Visit Charges Inpatient E&M: 18018 Subs Hosp L2
[2021-02-20] MEDS: Enoxaparin 40 MG/0.4 ML Syringe SC ×2 (10:29→21:17)
[2021-02-20] MEDS: Ceftriaxone 1 GM/50 ML BAG IV (10:30)
[2021-02-20] MEDS: dexAMETHasone 4 MG Tablet 6 MG PO (10:30)
[2021-02-20] MEDS: Docusate Sodium 100 MG Capsule PO ×2 (10:30→21:17)
[2021-02-20] MEDS: Azithromycin 250 MG Tablet 500 MG PO (10:31)
[2021-02-20 10:46] VITALS: O2SAT 98
[2021-02-20 10:51] LABS: Haptoglobin 214 mg/dL (42-296)
[2021-02-20 15:30] VITALS: BP 128/72; PULSE 100; RESP 18; TEMP 37.5; O2SAT 97
[2021-02-20] MEDS: Acetaminophen 325 MG Tablet 650 MG PO (17:54)
[2021-02-20 21:07] VITALS: BP 126/53; PULSE 91; RESP 18; TEMP 36.8; O2SAT 96
[2021-02-21 04:22] VITALS: BP 114/62; PULSE 94; RESP 18; TEMP 36.9; O2SAT 96
[2021-02-21] MEDS: Acetaminophen 325 MG Tablet 650 MG PO ×2 (04:31→10:24)
[2021-02-21 06:13] LABS: Absolute Lymphocyte Count 1.54 X10^3/uL (0.83-4.51); Absolute Neutrophil Count 9.5 X10^3/uL (2.0-7.7); Basophil# 0.01 X10^3/uL; Basophil% 0.1 % (0-1); Hematocrit 22.9 % (37-47); Hemoglobin 7.8 g/dL (12.0-15.0); Lymphocyte # 1.54 X10^3/ul (0.83-4.51); Lymphocyte % 13.2 % (19-41); Mean Corp Hgb Conc 34.1 g/dL (32-36); Mean Corpuscular Hgb 26.7 pg (27.0-32.0); Mean Corpuscular Volume 78.4 fL (81-99); Mean Platelet Vol. 9.2 fl (6.2-12.0); Monocyte# 0.56 X10^3/uL; Monocyte% 4.8 % (0-10); NRBC Flagged by Analyzer 0 % (0-5); Neutrophil # 9.51 X10^3/uL (2.7-7.7); Neutrophil % 81.2 % (47-70); Platelet Count 357 K/mm3 (150-450); RBC Distribution Width CV 19.3 % (11.6-14.6); RBC Distribution Width SD 55.4 fl (35.1-43.9); Red Blood Count 2.92 M/mm3 (4.2-5.4); White Blood Count 11.7 K/mm3 (4.4-11.0)
[2021-02-21 08:20] VITALS: O2SAT 95
[2021-02-21] MEDS: 0.9% Saline Lock 10 ML Syringe IV ×2 (09:22→10:24)
[2021-02-21] MEDS: dexAMETHasone 4 MG Tablet 6 MG PO (09:23)
[2021-02-21] MEDS: Enoxaparin 40 MG/0.4 ML Syringe SC (09:23)
[2021-02-21] MEDS: Azithromycin 250 MG Tablet 500 MG PO (09:23)
[2021-02-21] MEDS: Docusate Sodium 100 MG Capsule PO (09:23)
[2021-02-21] MEDS: Ceftriaxone 1 GM/50 ML BAG IV (09:23)
[2021-02-21 09:29] VITALS: BP 117/65; PULSE 98; RESP 18; TEMP 36.9; O2SAT 100
[2021-02-21 09:29] LABS: Vitamin B12 370 pg/mL (211-911)
[2021-02-21 09:36] VITALS: O2SAT 100; O2SAT 97
[2021-02-21 12:46] LABS: Hematocrit 24.4 % (37-47); Hemoglobin 8.3 g/dL (12.0-15.0)
--- NOTE | 2021-02-21 13:15 | PCM.DC ---
Discharge Instructions Diet Discharge Diet: No restrictions Activity Discharge Activity: Return to Normal Activity Dressing / Incision Call your doctor if you observe: Fever of 101 or Higher, Shortness of breath, Dizziness, Fainting spells, Swelling in the ankles, Chest pain and Increased palpitations (irregular heartbeat) Follow Up Care Test Results: Test results from this visit will be discussed in further detail at your follow-up appointment, if applicable. Discharge Plan Admission Admit Date/Time: 02/18/21 15:50 Attending Provider: Charles Lee Primary Care Provider: Eduin Cortez Instructions Additional Instructions / Restrictions: Follow-up with your primary care doctor to obtain outpatient lab monitoring for your hemoglobin. 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 We are uncertain as to how Covid will affect this disease however your hemoglobin is stable today at 8.3. You will come out of Covid precautions on 02/22/2021. Discharge Orders/Prescriptions Prescriptions: New cefdinir 300 mg capsule 300 mg PO Q12H Qty: 8 RF: 0 dexamethasone 2 mg tablet 6 mg PO DAILY 7 Days Qty: 21 RF: 0 Continued albuterol sulfate [Ventolin HFA] 1 INHALER inhaler 2 puff inhalation Q4H PRN PRN (Reason: Wheezing) Qty: 1 RF: 0 acetaminophen-codeine 120 mg-12 mg /5 mL (5 mL) solution 5 ml PO Q4H PRN (Reason: pain) 3 Days Qty: 100 RF: 0 Referrals / Follow Up: Eduin Cortez MD [Primary Care Provider] - Within 1 Week Juan Loznao DO [STAFF PHYSICIAN] - Within 2 Weeks Disposition Disposition (needs filled in before D/C Order can be placed): Home, Self Care
--- NOTE | 2021-02-21 13:21 | DS.PCM_ITS ---
Providers Date of Admission: 02/18/21 Primary Care Physician: Dr. Eduin Cortez MD Reason For Visit: COVID Diagnosis Discharge Diagnosis (1) Acute respiratory failure with hypoxia: Status: Acute Code(s): J96.01 - Acute respiratory failure with hypoxia (2) Pneumonia due to COVID-19 virus: Status: Acute Code(s): U07.1 - COVID-19; J12.82 - Pneumonia due to coronavirus disease 2019 Medications at Discharge Home Medications acetaminophen-codeine 5 ml PO Q4H PRN 3 Days #100 ml 02/06/21 albuterol sulfate [Ventolin HFA] 2 puff INHALATION Q4H PRN PRN #1 inhaler 02/06/21 cefdinir 300 mg PO Q12H #8 cap 02/21/21 dexamethasone 6 mg PO DAILY 7 Days #21 tab 02/21/21 Hospital Course Operations None Procedures None Summary of Care Provided Minutes Spent on Discharge: 50 Hospital Course: Per HPI: MIGUEL ANGEL REYES, is a 50 F who presents to the hospital with worsening shortness of breath, cough, and chest pain. She was diagnosed with Covid on 02/06/2021 with symptoms starting on 02/03/2021. At that time she was not hypoxic. She was offered monoclonal antibody infusion which she refused. She also is unvaccinated. For the last several days she has noticed that she has become more short of breath and that she had been having mildly elevated temperatures. She also has been having some chest pain in the right upper chest likely consistent with costochondritis secondary to all the coughing. She has had very little sputum production but what she has produces been clear. In the ER she was found to be hypoxic to 88% on room air and then with ambulation on room air she also dropped into the 80s as well necessitating 2 L of nasal cannula to be placed. Hospital Course: 1. Acute hypoxic respiratory failure secondary to COVID-19 pneumonia with possible bacterial superinfection and hemoglobin SC disease -We will obtain a sputum culture and start her on azithromycin and Rocephin given the fact that she had been stable and then suddenly worsened over the last 3 days with fevers and an elevated white count -She is outside the window for remdesivir and is not severe enough to warrant baricitinib. We will start her on Decadron -Continue with nasal cannula at 2 L -Iron studies show a little bit of a mixed picture, her iron is low and so is her saturation but so is her TIBC. Her ferritin is elevated consistent with an inflammatory response -LDH is a little bit elevated, haptoglobin is normal. -Stool studies are negative, urinalysis shows urobilinogen as well as occult blood and urine protein with no red blood cells -I got in touch with her manufacturer's representative who said that she has a history of hemo globin SC disease and sometimes these issues can be exacerbated during an acute inflammatory response. He is more than happy to see her on discharge in a week or 2. Of note I rechecked her hemoglobin this afternoon and she went up from 7.8-8.3 therefore I had an ambulatory pulse ox performed which demonstrated that she did not need oxygen at rest or with ambulation. I discussed with her the possibility for discharge today and she expressed understanding of the risk benefits going home and if she is stable to go home today. I do think that is an okay decision at this point, she has completed 3 days of azithromycin with complete 4 more days of cefdinir. I also recommend 7 more days of Decadron for her Covid. She is based on symptoms on day 19 therefore she can come out of isolation tomorrow. I do recommend she follow-up with her PCP in 3 to 5 days to obtain outpatient lab work to monitor her anemia. Physical Exam Const alert, oriented x3 and no apparent distress General Appearance: cooperative HEENT normocephalic Eyes PERRL, EOMs intact bilaterally and conjunctivae normal Neck supple and no JVD Resp normal respiratory effort, no retractions and no use of accessory muscles Auscultation: diminished lung sounds; Negative for crackles, rales, rhonchi or wheezes Cardio regular rhythm, S1 normal heart sound, S2 normal heart sound and no murmurs Rate: tachycardic GI soft to palpation, non-tender and non-distended; Negative for hepatosplenomegaly Extremity no clubbing, cyanosis or edema Skin no rashes or lesions noted Neuro no focal motor deficits and no sensory deficits noted Psych affect normal Appearance: appropriate Weight / BMI Weight Weight: 216 lb 11.43 oz Body Mass Index (BMI) 36.6 ABG / Lab / Microbiology Data Result Diagrams: 02/21/21 12:38 02/20/21 05:00 Laboratory: Laboratory Results - last 24 hr 02/19/21 07:10: Vitamin B12 370 02/21/21 05:56: WBC 11.7 H, RBC 2.92 L, Hgb 7.8 L, Hct 22.9 L, MCV 78.4 L, MCH 26.7 L, MCHC 34.1, RDW Std Deviation 55.4 H, RDW Coeff of Gloria 19.3 H, Plt Count 357, MPV 9.2, Immature Gran % (Auto) 0.700, Neut % (Auto) 81.2 H, Lymph % (Auto) 13.2 L, [place] % (Auto) 4.8, Eos % (Auto) 0.0, Baso % (Auto) 0.1, Absolute Neuts (auto) 9.5 H, Absolute Lymphs (auto) 1.54, Nucleated RBC % 0 02/21/21 12:38: Hgb 8.3 L, Hct 24.4 L Microbiology: Microbiology 02/18/21 12:13 Blood Culture (Wb) - Anticubital Left Blood Culture - Preliminary No growth in 48 hours. 02/18/21 12:30 Blood Culture (Wb) - Anticubital Right Blood Culture - Preliminary No growth in 48 hours. 02/19/21 21:30 Stool Stool Occult Blood ([facility]) - Final D/C Instructions Discharge Diet: No restrictions Call your doctor if you observe: Fever of 101 or Higher, Shortness of breath, Dizziness, Fainting spells, Swelling in the ankles, Chest pain and Increased palpitations (irregular heartbeat) Meaningful Use Info Meaningful Use Diagnoses (Choose all that apply): None applicable Discharge Plan Admission Admit Date/Time: 02/18/21 15:50 Attending Provider: Charles Lee Primary Care Provider: Eduin Cortez Instructions Additional Instructions / Restrictions: Follow-up with your primary care doctor to obtain outpatient lab monitoring for your hemoglobin. 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 We are uncertain as to how Covid will affect this disease however your hemoglobin is stable today at 8.3. You will come out of Covid precautions on 02/22/2021. Discharge Orders/Prescriptions Prescriptions: New cefdinir 300 mg capsule 300 mg PO Q12H Qty: 8 RF: 0 dexamethasone 2 mg tablet 6 mg PO DAILY 7 Days Qty: 21 RF: 0 Continued albuterol sulfate [Ventolin HFA] 1 INHALER inhaler 2 puff inhalation Q4H PRN PRN (Reason: Wheezing) Qty: 1 RF: 0 acetaminophen-codeine 120 mg-12 mg /5 mL (5 mL) solution 5 ml PO Q4H PRN (Reason: pain) 3 Days Qty: 100 RF: 0 Referrals / Follow Up: Eduin Cortez MD [Primary Care Provider] - Within 1 Week Juan Lozano DO [STAFF PHYSICIAN] - Within 2 Weeks Disposition Disposition (needs filled in before D/C Order can be placed): Home, Self Care Charges/Coding Visit Charges Inpatient E&M: 34905 Disch Hosp
[2021-02-21 14:04] VITALS: BP 116/68; PULSE 103; RESP 16; TEMP 36.8; O2SAT 98
--- NOTE | 2021-02-22 15:21 | CASEMGMT ---
OPAL DELGADILLO Discharge Follow-Up Phone Call. Marcie: Maddie Strata: 2 Discharge Date: 02/21/21 Adm Dx: COVID Call to pt to inquire about how she has been doing since being discharged from the hospital. Pt states, I'm doing pretty good. She states she is currently getting ready to go to f/u appt w/Dr Cortez now. She was able to sheepskin pickler new rx's from [facility] yesterday and denies having any questions about any of her medications or discharge instructions. She states They are working on getting me an appt w/Dr Lozano, stating they are not sure if he is in network w/her insurance but the office is in the process of looking into this. She denies having any questions or concerns and thanked OPAL DELGADILLO for calling. Nirav CARBAJAL RN, CM
== END 2021-02-21 14:50 | disposition home or self-care (01) | DRG 177 ==
LOC: ED 15:30 → MS3 16:29
PROVIDERS: Hospitalist; Admitting Provider Family Medicine; Emergency Provider Emergency Medicine; PCP Family Medicine; Visit Provider Family Medicine
DX: U07.1 COVID-19 (principal); J12.82 Pneumonia due to coronavirus disease 2019; J96.01 Acute respiratory failure with hypoxia; D57.20 Sickle-cell/Hb-C disease without crisis; M94.0 Chondrocostal junction syndrome [Tietze]; Z28.3 Underimmunization status
CPT/HCPCS: 36415; 71275; 80048; 80053; 81001; 82274; 82607; 82728; 82746; 83010; 83540; 83550; 83605; 83615; 84484; 85014; 85018; 85025; 85045; 86850; 86900; 86901; 86920; 86922; 87040; 93005; 94667; 94668; 97802; 99251; 99285; J7040; J7050; P9016; Q9967; A4216; G0463; J2405

== ENCOUNTER → 2021-02-22 16:41 | Outpatient (CLI) | payer OTHER, SELFPAY ==
[2021-02-22 17:46] LABS: Absolute Neutrophil Count 9.2 X10^3/uL (2.0-7.7); Basophil# 0.01 X10^3/uL; Basophil% 0.1 % (0-1); Hematocrit 25.4 % (37-47); Hemoglobin 8.5 g/dL (12.0-15.0); Lymphocyte % 10.3 % (19-41); Mean Corp Hgb Conc 33.5 g/dL (32-36); Mean Corpuscular Hgb 26.6 pg (27.0-32.0); Mean Corpuscular Volume 79.6 fL (81-99); Mean Platelet Vol. 9.3 fl (6.2-12.0); Monocyte# 0.25 X10^3/uL; Monocyte% 2.3 % (0-10); NRBC Flagged by Analyzer 0 % (0-5); Neutrophil # 9.21 X10^3/uL (2.7-7.7); Neutrophil % 86.5 % (47-70); POSITIVE MORPHOLOGY YES; Platelet Count 417 K/mm3 (150-450); RBC Distribution Width CV 20.3 % (11.6-14.6); RBC Distribution Width SD 58.4 fl (35.1-43.9); Red Blood Count 3.19 M/mm3 (4.2-5.4); White Blood Count 10.7 K/mm3 (4.4-11.0)
[2021-02-22 18:25] LABS: Differential Indicated SCAN CRITERIA MET
[2021-02-22 18:28] LABS: Anisocytosis 1+; Differential Comment SCANNED; Hypochromasia 1+
[2021-02-22 18:29] LABS: Target Cells 1+
== END ==
PROVIDERS: PCP Family Medicine; Referring Provider Family Medicine; Visit Provider Family Medicine
DX: U07.1 COVID-19 (principal)
CPT/HCPCS: 36415; 85025

== ENCOUNTER → 2021-03-02 14:55 | Outpatient (CLI) | payer OTHER, SELFPAY ==
[2021-03-02 17:34] LABS: Absolute Lymphocyte Count 2.69 X10^3/uL (0.83-4.51); Basophil# 0.03 X10^3/uL; Basophil% 0.3 % (0-1); Eosinophils% 1.9 % (0-5); Hematocrit 29.6 % (37-47); Hemoglobin 10.1 g/dL (12.0-15.0); Lymphocyte # 2.69 X10^3/ul (0.83-4.51); Lymphocyte % 25.5 % (19-41); Mean Corp Hgb Conc 34.1 g/dL (32-36); Mean Corpuscular Hgb 27.9 pg (27.0-32.0); Mean Corpuscular Volume 81.8 fL (81-99); Mean Platelet Vol. 9.6 fl (6.2-12.0); Monocyte# 0.57 X10^3/uL; Monocyte% 5.4 % (0-10); NRBC Flagged by Analyzer 0 % (0-5); Neutrophil % 66.4 % (47-70); POSITIVE MORPHOLOGY YES; Platelet Count 320 K/mm3 (150-450); RBC Distribution Width SD 62.2 fl (35.1-43.9); Red Blood Count 3.62 M/mm3 (4.2-5.4); White Blood Count 10.5 K/mm3 (4.4-11.0)
[2021-03-02 17:44] LABS: Differential Indicated SCAN CRITERIA MET
[2021-03-02 17:52] LABS: ALB/GLOB Ratio 0.6 RATIO (0.9-2.4); AST(SGOT) 17 U/L (15-37); Alanine Aminotransfer ALT/SGPT 22 U/L (13-56); Albumin, Serum 2.9 g/dL (3.2-5.0); Alkaline Phosphatase 54 U/L (45-117); Anion Gap 8 (5-15); BUN 13 mg/dL (7-18); BUN/Creat Ratio 13.4 RATIO (10-20); Calcium,Total 8.7 mg/dL (8.5-10.1); Chloride 100 mmol/L (98-107); Creatinine, Serum 0.97 mg/dL (0.55-1.02); EST Glomerular Filtration Rate 64 mL/min (>60); Est Glom Filt Rate - Afr Amer 78 mL/min (>60); Globulin 4.9 g/dL (2.2-4.2); Glucose 79 mg/dL (74-106); Potassium 3.7 mmol/L (3.5-5.1); Protein, Total 7.8 g/dL (6.4-8.2); Sodium Level 137 mmol/L (136-145); Thyroid Stim Hormone (TSH) 2.02 uIU/mL (0.358-3.74)
[2021-03-02 18:15] LABS: Anisocytosis 2+; Platelet Estimate ADEQUATE (ADEQ)
[2021-03-02 18:16] LABS: Sickle 2+; Target Cells 2+
[2021-03-02 18:17] LABS: Stomatocyte 2+
[2021-03-04 15:24] LABS: Pathologist Review Reviewed
== END ==
PROVIDERS: PCP Family Medicine; Referring Provider Family Medicine; Visit Provider Family Medicine
DX: D57.1 Sickle-cell disease without crisis (principal); E66.9 Obesity, unspecified
CPT/HCPCS: 36415; 80053; 84443; 85025

== ENCOUNTER → 2022-02-02 | Outpatient (CLI) | payer OTHER, SELFPAY | END | disposition home or self-care (01) | PROVIDERS: PCP Family Medicine; Visit Provider Family Medicine | DX: R19.7 Diarrhea, unspecified (principal) | CPT/HCPCS: 87506 ==

== ENCOUNTER → 2022-02-09 | Outpatient (CLI) | payer OTHER, SELFPAY ==
--- NOTE | 2022-02-09 10:51 | RAD_ITS ---
STUDY: X-RAY - ABDOMEN/PELVIS REASON FOR EXAM: Female, 51 years old. Abdominal pain and bloating for one month. Occasional vomiting and diarrhea. TECHNIQUE: AP supine and upright views of the abdomen and pelvis. COMPARISON: None. FINDINGS: Normal visualized lung bases. Generalized paucity of bowel gas. Minimal feces and air is seen in the colon. There is no small bowel dilatation. There is no demonstrated free abdominal air. The visualized liver, spleen and kidneys are grossly normal in size and morphology. Cholecystectomy clips are seen in the right upper quadrant. Normal soft tissue structures. Normal visualized osseous structures. RAD/Abd Inc Decub and/or Erect IMPRESSION: No evidence of acute intra-abdominal or pelvic process. Electronically Signed: Ranulfo Blankenship DO at 17:13 EDT ,
[2022-02-09 12:36] LABS: Absolute Lymphocyte Count 1.42 X10^3/uL (0.83-4.51); Absolute Neutrophil Count 3.4 X10^3/uL (2.0-7.7); Basophil# 0.03 X10^3/uL; Basophil% 0.6 % (0-1); Eosinophil# 0.12 X10^3/uL; Eosinophils% 2.3 % (0-5); Hematocrit 33.2 % (37-47); Hemoglobin 11.4 g/dL (12.0-15.0); Lymphocyte # 1.42 X10^3/ul (0.83-4.51); Lymphocyte % 27.5 % (19-41); Mean Corp Hgb Conc 34.3 g/dL (32-36); Mean Corpuscular Hgb 29.3 pg (27.0-32.0); Mean Corpuscular Volume 85.3 fL (81-99); Mean Platelet Vol. 10.9 fl (6.2-12.0); Monocyte# 0.19 X10^3/uL; Monocyte% 3.7 % (0-10); NRBC Flagged by Analyzer 0 % (0-5); Neutrophil % 65.7 % (47-70); Platelet Count 269 K/mm3 (150-450); RBC Distribution Width CV 16.6 % (11.6-14.6); Red Blood Count 3.89 M/mm3 (4.2-5.4); White Blood Count 5.2 K/mm3 (4.4-11.0)
[2022-02-09 12:40] LABS: ALB/GLOB Ratio 0.7 RATIO (0.9-2.4); AST(SGOT) 25 U/L (15-37); Alanine Aminotransfer ALT/SGPT 30 U/L (13-56); Albumin, Serum 3.5 g/dL (3.2-5.0); Alkaline Phosphatase 69 U/L (45-117); Anion Gap 8 (5-15); BUN 11 mg/dL (7-18); BUN/Creat Ratio 12.2 RATIO (10-20); Calcium,Total 9.7 mg/dL (8.5-10.1); Chloride 107 mmol/L (98-107); EST Glomerular Filtration Rate 70 mL/min (>60); Est Glom Filt Rate - Afr Amer 84 mL/min (>60); Globulin 5.2 g/dL (2.2-4.2); Glucose 92 mg/dL (74-106); Lipase 114 U/L (73-393); Potassium 4.6 mmol/L (3.5-5.1); Protein, Total 8.7 g/dL (6.4-8.2); Sodium Level 137 mmol/L (136-145)
== END | disposition home or self-care (01) ==
LOC: MTLAB 10:49
PROVIDERS: PCP Family Medicine; Referring Provider Family Medicine; Visit Provider Family Medicine
DX: R10.9 Unspecified abdominal pain (principal)
CPT/HCPCS: 36415; 74019; 80053; 83690; 85025

== ENCOUNTER → 2022-03-09 | Outpatient (CLI) | payer OTHER, SELFPAY ==
[2022-03-09 11:16] LABS: Anion Gap 7 (5-15); BUN 15 mg/dL (7-18); BUN/Creat Ratio 19.1 RATIO (10-20); Chloride 106 mmol/L (98-107); Cholesterol 208 mg/dL (200); Creatinine, Serum 0.78 mg/dL (0.55-1.02); EST Glomerular Filtration Rate 82 mL/min (>60); Est Glom Filt Rate - Afr Amer 99 mL/min (>60); Glucose 93 mg/dL (74-106); High Density Lipoprotein 59 mg/dL; Potassium 4.1 mmol/L (3.5-5.1); Sodium Level 141 mmol/L (136-145); Triglycerides 116 mg/dL; Very Low Density Lipoprotein 23 mg/dL (5-40)
== END | disposition home or self-care (01) ==
LOC: MFPLAB 09:46
PROVIDERS: PCP Family Medicine; Referring Provider Family Medicine; Visit Provider Nurse Practitioner Family
DX: Z13.1 Encounter for screening for diabetes mellitus (principal); Z13.220 Encounter for screening for lipoid disorders
CPT/HCPCS: 36415; 80048; 80061

== ENCOUNTER 2022-05-18 10:47 | Emergency (ER) | payer OTHER, SELFPAY ==
[2022-05-18 10:49] VITALS: BP 165/110; PULSE 99; RESP 17; TEMP 36; O2SAT 100; BMI 40.3
--- NOTE | 2022-05-18 11:18 | EKG12_ITS ---
Test Reason : CP Blood Pressure : / mmHG Vent. Rate : 092 BPM Atrial Rate : 092 BPM P-R Int : 150 ms QRS Dur : 082 ms QT Int : 360 ms P-R-T Axes : 055 027 008 degrees QTc Int : 445 ms Normal sinus rhythm Nonspecific ST and T wave abnormality Abnormal ECG Confirmed by ASIYA HILL, NATALIYA ([id number]), order editor WING SONI ([id number]) on 05/19/2022 9:51:29 AM Referred By: CELINA Confirmed By:NATALIYA BRADEN MD
--- NOTE | 2022-05-18 11:24 | EDS_ITS ---
HPI History of Present Illness Chief Complaint: Chest Pain Informant: patient Narrative Narrative: Present Worsening chest burning today. No nausea or vomiting. 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 However today also pain into her back. She reports similar sensation when she was diagnosed with pancreatitis 3 years ago she did not have any abdominal pain at that time. She occasionally drinks alcohol. Denies any recent cough. Able to tolerate p.o. intake yesterday. Denies tobacco history denies hypertension diabetes hyperlipidemia. Father with an VA less than 55. No recent travel, surgeries, or immobilizations. No history of PE or DVT. Prior Similar Symptoms: Yes CVD Risk Factors: Positive for Family History 1' </=55; Negative for Hypertension, Diabetes, Hypercholesterolemia or Smoking PE Risk Factors: Negative for Recent Travel/Surgery, Recent Immobilization, Prior DVT or PE, Cancer or OCP + Smoking + >/=35 PFSH PFSH Medical History Anemia COVID Hemoglobin SC disease Migraines Non-smoker Obesity (BMI 30-39.9) Pancreatitis Pneumonia Home Medications folic acid 1 mg tablet 1 mg PO DAILY 05/18/22 [History Last Taken Unknown] omeprazole 20 mg capsule,delayed release 20 mg PO DAILY #30 CAPSULES 05/18/22 [Rx Last Taken Unknown] Allergy/AdvReac Type Severity Reaction Status Date / Time tetanus and diphtheria Allergy Swelling Verified 05/18/22 10:47 toxoids [tetanus & diphtheria toxoids] Iodinated Contrast Media AdvReac Mild Vomiting Verified 05/18/22 10:47 Family History Other Cancer Heart disease Surgical History History of cholecystectomy Status post hysterectomy Social History Smoking Status: Never smoker substance use type: does not use ROS ROS ED Constitutional Constitutional ED: Denies chills, fever(s) or sweats Eyes Eyes: Denies change in vision ENT ENT ED: Denies dysphagia or sore throat Cardiovascular Cardiovascular: Reports chest pain; Denies leg edema, palpitations or racing heartbeat Respiratory/Chest Respiratory/Chest: Denies cough, dyspnea or dyspnea on exertion Gastrointestinal Gastrointestinal: Denies abdominal pain, diarrhea, nausea or vomiting Genitourinary Genitourinary ED: Denies dysuria, hematuria or urinary frequency Musculoskeletal Musculoskeletal: Denies back pain, extremity pain or neck pain Integumentary Denies rash or wounds Neurologic Neurologic: Denies headache(s), paresthesias or weakness EXAM Physical Exam Const Vital Signs: 05/18/22 10:49 05/18/22 11:33 05/18/22 11:33 Temperature 96.8 F L Temperature Source Temporal Pulse Rate 99 Respiratory Rate 17 Respiratory Effort Normal Non-Labored Blood Pressure 165/110 H Blood Pressure Mean 128 Pulse Ox 100 98 Oxygen Delivery Method Room Air Room Air 05/18/22 12:16 05/18/22 13:02 05/18/22 14:26 Temperature Temperature Source Pulse Rate 82 77 Respiratory Rate 17 16 16 Respiratory Effort Blood Pressure 144/83 H 137/71 H 127/69 H Blood Pressure Mean 103 93 88 Pulse Ox 98 100 100 Oxygen Delivery Method Room Air Room Air Room Air 05/18/22 15:11 Temperature Temperature Source Pulse Rate 89 Respiratory Rate 17 Respiratory Effort Blood Pressure 128/76 H Blood Pressure Mean Pulse Ox 98 Oxygen Delivery Method Positive well nourished and well developed Constitutional Narrative: Uncomfortable, nontoxic General Appearance ED: well developed HEENT Reports moist mucous membranes normocephalic and atraumatic Eyes PERRL, EOMs intact bilaterally and conjunctivae normal General Eye ED: Yes normal appearance of both eyes Neck no lymphadenopathy and supple General: Negative for tenderness Chest Wall Chest Narrative: Chest wall tenderness across the upper chest, no rash. No crepitus. Chest: tenderness Resp normal respiratory effort and normal air movement Effort and Inspection: symmetric chest movement; Negative for respiratory distress Cardio regular rate, regular rhythm and no murmurs Peripheral Pulses: pulses 2+ throughout GI normal to inspection, nondistended, normoactive bowel sounds and non-tender Palpation: Negative for guarding or rebound tenderness present Back/Spine no CVA tenderness and no thoracic nor lumbar tenderness Extremity normal to inspection General Extremety ED: Negative for edema or tenderness General Extremity: Negative for edema Neuro oriented x3 and no sensory deficits noted Sensorium / Orientation: awake and alert Skin no rashes or lesions noted and no wounds MDM MDM MDM Narrative Medical decision making narrative: Interventions / MDM: Differential diagnosis: Musculoskeletal chest pain, ACS, pancreatitis, reflux Diagnosis considered but do not suspect: Pulmonary embolism denies any dyspnea or any exertional dyspnea. My EKG interpretation: Sinus rhythm rate of 92, no ST or T wave changes Imaging independently reviewed and interpreted by myself: 2 view chest x-ray negative for acute External documents reviewed: N/A Test considered but not ordered:N/A ED course: Patient chest ache and burning sensations. Reports similar to pancreatitis in the past without vomiting or abdominal pain years ago. Work-up negative troponin 2. Improving symptoms of burning with GI cocktail. Improving symptoms of aching with Toradol. Lipase was gated. Chest x-ray is now. She is placed on a PPI. She will use Tylenol as needed. She will follow-up with her PCP. Return precautions. Re-evaluation: stable and improved Disposition discussed with patient/family/significant other: Patient Case discussed with consulting clinician: N/A Lab Data Attestation: I reviewed the patient's lab results. Labs: Laboratory Results - last 24 hr 05/18/22 05/18/22 05/18/22 11:10 11:10 13:13 WBC 6.6 RBC 4.07 L Hgb 11.4 L Hct 32.7 L MCV 80.3 L MCH 28.0 MCHC 34.9 RDW Std Deviation 46.6 H RDW Coeff of Gloria 16.2 H Plt Count 275 MPV 10.4 Immature Gran % (Auto) 0.300 Neut % (Auto) 66.8 Lymph % (Auto) 25.6 Payette % (Auto) 4.1 Eos % (Auto) 2.6 Baso % (Auto) 0.6 Absolute Neuts (auto) 4.4 Absolute Lymphs (auto) 1.68 Nucleated RBC % 0 Sodium 142 Potassium 3.9 Chloride 105 Carbon Dioxide 29.0 Anion Gap 8 BUN 12 Creatinine 0.85 Estim Creat Clear Calc 67.62 Est GFR (MDRD) Af Amer 91 Est GFR (MDRD) Non-Af 75 BUN/Creatinine Ratio 14.2 Glucose 95 Calcium 9.5 Total Bilirubin 1.00 Direct Bilirubin 0.22 AST 15 ALT 19 Alkaline Phosphatase 68 Troponin I High Sens 4 4 Total Protein 8.2 Albumin 3.9 Globulin 4.3 H Lipase 115 Radiography Diagnostic Testing: Clinical Impression(s) from Imaging Studies Chest X-Ray 05/18/22 11:33 IMPRESSION: No acute abnormality is seen.. Electronically Signed: Germán Luther MD at 12:13 EST , EKG Initial EKG: Attestation: I personally reviewed and interpreted this EKG as follows: Comments: Sinus rate of 92, no ST changes. T wave flattening in leads III, nonspecific. Prior EKG tracings: available for review Prior: Unchanged Discharge Plan Triage Chief Complaint: Chest Pain ED Provider: Addison Collazo Dx/Rx/DC Orders Clinical Impression: Atypical chest pain, Gastroesophageal reflux disease, Chest pain, m usculoskeletal Instructions: ED Chest Pain, Noncardiac, ED Chest Wall Pain, Costochondritis, ED GERD (Adult) Prescriptions: New omeprazole [omeprazole] 20 mg capsule,delayed release(DR/EC) 20 mg PO DAILY Qty: 30 0RF No Action folic acid 1 mg tablet 1 mg PO DAILY Label Comments: TAKE 1 TABLET BY MOUTH ONCE DAILY Primary Care Provider: Eduin Cortez Referrals: Eduin Cortez MD [Primary Care Provider] - 3-5 Days Activity Restrictions/Additional Instructions: Cardiac work-up negative. Continue using Tylenol 1 g every 6 hours as needed. Take omeprazole as prescribed. Follow-up with your doctor. Return if any worsening symptoms. Disposition Disposition: Home, Self Care Discharge Date/Time: 05/18/22 15:16
[2022-05-18 11:31] LABS: Absolute Lymphocyte Count 1.68 X10^3/uL (0.83-4.51); Absolute Neutrophil Count 4.4 X10^3/uL (2.0-7.7); Basophil# 0.04 X10^3/uL; Basophil% 0.6 % (0-1); Eosinophil# 0.17 X10^3/uL; Eosinophils% 2.6 % (0-5); Hematocrit 32.7 % (37-47); Hemoglobin 11.4 g/dL (12.0-15.0); Lymphocyte # 1.68 X10^3/ul (0.83-4.51); Lymphocyte % 25.6 % (19-41); Mean Corp Hgb Conc 34.9 g/dL (32-36); Mean Corpuscular Volume 80.3 fL (81-99); Mean Platelet Vol. 10.4 fl (6.2-12.0); Monocyte# 0.27 X10^3/uL; Monocyte% 4.1 % (0-10); NRBC Flagged by Analyzer 0 % (0-5); Neutrophil # 4.39 X10^3/uL (2.7-7.7); Neutrophil % 66.8 % (47-70); Platelet Count 275 K/mm3 (150-450); RBC Distribution Width CV 16.2 % (11.6-14.6); RBC Distribution Width SD 46.6 fl (35.1-43.9); Red Blood Count 4.07 M/mm3 (4.2-5.4); White Blood Count 6.6 K/mm3 (4.4-11.0)
[2022-05-18 11:33] VITALS: O2SAT 98
--- NOTE | 2022-05-18 11:33 | RAD_ITS ---
STUDY: X-RAY CHEST REASON FOR EXAM: Female, 51 years old. Chest pain TECHNIQUE: Single AP portable view of the chest. COMPARISON: Comparison is made with prior study 02/06/2021. FINDINGS: EKG electrodes are seen. The lungs are clear and expanded. There is no demonstrated pleural abnormality. Normal size heart. Normal mediastinum and dominic. Normal visualized pulmonary arteries. There is atherosclerotic tortuosity of the aortic arch and descending thoracic aorta. There are diffuse degenerative changes of the visualized thoracic spine. Normal visualized ribs, clavicles, and shoulders. There is no demonstrated abnormality of the visualized soft tissue structures of the upper abdomen. RAD/Chest 1 View (Portable) IMPRESSION: No acute abnormality is seen.. Electronically Signed: Germán Luther MD at 12:13 [facility] ,
[2022-05-18] MEDS: Aspirin 81 MG TAB.CHEW 324 MG PO (11:40)
[2022-05-18] MEDS: Mag Hydrox/Al Hydrox/Simeth 30 ML UDC PO (11:41)
[2022-05-18 11:56] LABS: AST(SGOT) 15 U/L (15-37); Alanine Aminotransfer ALT/SGPT 19 U/L (13-56); Albumin, Serum 3.9 g/dL (3.2-5.0); Alkaline Phosphatase 68 U/L (45-117); Anion Gap 8 (5-15); BUN 12 mg/dL (7-18); BUN/Creat Ratio 14.2 RATIO (10-20); Bilirubin, Direct 0.22 mg/dL (0.00-0.30); Calcium,Total 9.5 mg/dL (8.5-10.1); Chloride 105 mmol/L (98-107); Creatinine, Serum 0.85 mg/dL (0.55-1.02); EST Glomerular Filtration Rate 75 mL/min (>60); Est Glom Filt Rate - Afr Amer 91 mL/min (>60); Estimated Creatinine Clearance 67.62 ml/min; Globulin 4.3 g/dL (2.2-4.2); Glucose 95 mg/dL (74-106); Lipase 115 U/L (73-393); Potassium 3.9 mmol/L (3.5-5.1); Protein, Total 8.2 g/dL (6.4-8.2); Sodium Level 142 mmol/L (136-145); Troponin-I HS (w/2H Reflex) 4 pg/mL (3.0-54.0)
[2022-05-18 12:16] VITALS: BP 144/83; PULSE 82; RESP 17; O2SAT 98
[2022-05-18 13:02] VITALS: BP 137/71; PULSE 77; RESP 16; O2SAT 100
[2022-05-18] MEDS: Ketorolac 15 MG/ML Vial IV (13:33)
[2022-05-18 13:41] LABS: Reflex Troponin-HS? (from REC) Y
[2022-05-18 14:03] LABS: Troponin-I HS 4 pg/mL (3.0-54.0)
[2022-05-18 14:26] VITALS: BP 127/69; RESP 16; O2SAT 100
[2022-05-18 15:11] VITALS: BP 128/76; PULSE 89; RESP 17; O2SAT 98
== END 2022-05-18 15:16 | disposition home or self-care (01) ==
PROVIDERS: Emergency Provider Emergency Medicine; PCP Family Medicine; Visit Provider Emergency Medicine
DX: R07.89 Other chest pain (principal); K21.9 Gastro-esophageal reflux disease without esophagitis; Z86.16 Personal history of COVID-19
CPT/HCPCS: 71045; 80048; 80076; 83690; 84484; 85025; 93005; 96374; 99285; A4216

== ENCOUNTER → 2023-01-04 | Outpatient (CLI) | payer OTHER, SELFPAY ==
[2023-01-04 17:47] LABS: Absolute Neutrophil Count 3.9 X10^3/uL (2.0-7.7); Basophil# 0.03 X10^3/uL; Basophil% 0.5 % (0-1); Eosinophil# 0.14 X10^3/uL; Eosinophils% 2.2 % (0-5); Hematocrit 29.8 % (37-47); Hemoglobin 10.2 g/dL (12.0-15.0); Lymphocyte % 32.4 % (19-41); Mean Corp Hgb Conc 34.2 g/dL (32-36); Mean Corpuscular Volume 81.9 fL (81-99); Mean Platelet Vol. 10.4 fl (6.2-12.0); Monocyte# 0.33 X10^3/uL; Monocyte% 5.1 % (0-10); NRBC Flagged by Analyzer 0 % (0-5); Neutrophil # 3.86 X10^3/uL (2.7-7.7); Neutrophil % 59.5 % (47-70); Platelet Count 238 K/mm3 (150-450); RBC Distribution Width CV 15.9 % (11.6-14.6); RBC Distribution Width SD 48.1 fl (35.1-43.9); Red Blood Count 3.64 M/mm3 (4.2-5.4); White Blood Count 6.5 K/mm3 (4.4-11.0)
[2023-01-04 18:06] LABS: Vitamin B12 429 pg/mL (211-911); Vitamin D,25 Hydroxy 18.1 ng/mL
[2023-01-04 18:20] LABS: ALB/GLOB Ratio 0.9 RATIO (0.9-2.4); AST(SGOT) 12 U/L (15-37); Alanine Aminotransfer ALT/SGPT 19 U/L (13-56); Albumin, Serum 3.8 g/dL (3.2-5.0); Alkaline Phosphatase 68 U/L (45-117); Anion Gap 6 (5-15); BUN 16 mg/dL (7-18); BUN/Creat Ratio 18.4 RATIO (10-20); Calcium,Total 9.1 mg/dL (8.5-10.1); Chloride 107 mmol/L (98-107); Cholesterol 198 mg/dL (200); Creatinine, Serum 0.87 mg/dL (0.55-1.02); EST Glomerular Filtration Rate 73 mL/min (>60); Est Glom Filt Rate - Afr Amer 88 mL/min (>60); Globulin 4.1 g/dL (2.2-4.2); Glucose 94 mg/dL (74-106); High Density Lipoprotein 56 mg/dL; Potassium 3.7 mmol/L (3.5-5.1); Protein, Total 7.9 g/dL (6.4-8.2); Sodium Level 140 mmol/L (136-145); T4 Free Direct 1.04 ng/dL (0.76-1.46); Thyroid Stim Hormone (TSH) 1.57 uIU/mL (0.358-3.74); Triglycerides 111 mg/dL; Very Low Density Lipoprotein 22 mg/dL (5-40)
== END | disposition home or self-care (01) ==
LOC: MFPLAB 16:31
PROVIDERS: PCP Family Medicine; Visit Provider Family Medicine
DX: R53.83 Other fatigue (principal)
CPT/HCPCS: 36415; 80053; 80061; 82306; 82607; 84439; 84443; 85025

== ENCOUNTER → 2023-02-08 | Outpatient (CLI) | payer OTHER, SELFPAY ==
--- NOTE | 2023-02-08 10:32 | BI_ITS ---
MAMMOGRAPHY - BILATERAL SCREENING REASON FOR EXAM: Female, 52 years old. Routine annual screening examination. PERTINENT HISTORY: Non-contributory. Prior left stereotactic breast biopsy. TECHNIQUE: Digital bilateral breast jackie (3D mammographic acquisition) in the CC and MLO projections. 2-D mediolateral oblique (MLO) and craniocaudad (CC) views of both breasts were obtained. CAD: Full Field Digital Mammography with Computer Added Detection was performed. COMPARISON: Comparison is made with prior examination dated February 22, 2017. FINDINGS: Breast Composition: The breasts are extremely dense, which lowers the sensitivity of mammography. There are no dominant masses or suspicious calcifications. A tissue clip marker is seen in the central aspect of the left breast. No other significant abnormalities are identified. There has been no significant change since the prior study. BI/SCRN MAMM (CAD)W/JACKIE BILAT IMPRESSION: Stable bilateral screening mammogram. Yearly follow-up mammogram recommended. (A) ASSESSMENT CATEGORY: BIRADS Category 2: Benign. A letter regarding these results will be sent to the patient by the facility within 30 days. Approximately 10% of breast cancers are not detected by mammography. A normal mammogram should not delay biopsy of a clinically suspicious abnormality. [id number] Electronically Signed: Germán Luther MD at 12:32 EDT ,
== END | disposition home or self-care (01) ==
LOC: OPBI 10:30
PROVIDERS: PCP Family Medicine; Referring Provider Family Medicine; Visit Provider Family Medicine
DX: Z12.31 Encounter for screening mammogram for malignant neoplasm of breast (principal)
CPT/HCPCS: 77063; 77067

== ENCOUNTER 2023-02-22 08:24 | Day surgery (SDC) | payer OTHER, SELFPAY ==
[2023-02-22 09:06] VITALS: BP 146/76; PULSE 84; RESP 16; TEMP 36.6; O2SAT 100; BMI 40.4
[2023-02-22] MEDS: Lactated Ringers 1,000 ML 15 ML IV (09:11)
--- NOTE | 2023-02-22 09:14 | HP.PCM_ITS ---
[facility] - General General Date of Admission: 02/22/23 Date of Service: 02/22/23 Chief Complaint: Screening colonoscopy HPI Hong REYES, is a 52 F who presents today for screening colonoscopy past medical history is positive for COVID-19 infection with normal. She does not take any medicine on daily basis except for some folic acid and vitamin D. She is not have any chest pain, shortness of breath, nausea, vomiting or diarrhea. Overall she is in very good health. [facility] Medical History (Updated 02/21/23 @ 08:52 by Shannan Sanchez) Alcohol use Anemia COVID Hemoglobin SC disease History of stress test Hypertension Migraines Non-smoker Obesity (BMI 30-39.9) Pancreatitis Pneumonia Post-menopausal Sickle cell anemia Wears contact lenses Wears glasses Home Medications folic acid 1 mg tablet 1 mg PO DAILY 05/18/22 [History Last Taken Unknown] ergocalciferol (vitamin D2) 1,250 mcg (50,000 unit) capsule (Vitamin D2) 1,250 mcg PO QWEEK 02/21/23 [History Last Taken Unknown] Allergy/AdvReac Type Severity Reaction Status Date / Time tetanus and diphtheria Allergy Swelling Verified 02/22/23 09:05 toxoids [tetanus & diphtheria toxoids] Iodinated Contrast Media AdvReac Mild Vomiting Verified 02/22/23 09:05 Family History Other Cancer Heart disease Surgical History History of cholecystectomy Status post hysterectomy Social History (Updated 01/09/23 @ 12:54 by Gabrielle Lau) current occupational status: employed Smoking Status: Never smoker substance use type: does not use ROS Constitutional Constitutional: Reports fever(s); Denies chills, fatigue or malaise Eyes Eyes: Denies blurry vision ENT HEENT: Denies headache(s) or nasal discharge Cardiovascular Cardiovascular: Reports chest pain; Denies dyspnea on exertion or syncope Respiratory/Chest Respiratory/Chest: Reports cough and shortness of breath at rest; Denies shortness of breath with exertion Gastrointestinal Gastrointestinal: Denies constipation, diarrhea, nausea or vomiting Genitourinary Genitourinary: Denies dysuria Neurologic Neurologic: Denies focal weakness, numbness or tremor(s) Psychiatric Psychiatric: Denies anxiety or depression Vital Signs Vital Signs Vital Signs: 02/22/23 09:06 02/22/23 09:06 Temperature 97.8 F Temperature Source Temporal Pulse Rate 84 Respiratory Rate 16 Respiratory Pattern Normal Blood Pressure 146/76 H Blood Pressure Mean 99 Blood Pressure Source Monitor Blood Pressure Position Supine Blood Pressure Location Left Arm Pulse Ox 100 Oxygen Delivery Method Room Air Weight Weight: 235 lb 14.314 oz Body Mass Index (BMI) 40.4 Physical Exam Const alert, oriented x3 and no apparent distress General Appearance: cooperative HEENT normocephalic Eyes PERRL, EOMs intact bilaterally and conjunctivae normal Neck supple and no JVD Resp normal respiratory effort, no retractions and no use of accessory muscles Auscultation: diminished lung sounds; Negative for crackles, rales, rhonchi or wheezes Cardio regular rhythm, S1 normal heart sound, S2 normal heart sound and no murmurs Rate: tachycardic GI soft to palpation, non-tender and non-distended; Negative for hepatosplenomegaly Extremity no clubbing, cyanosis or edema Skin no rashes or lesions noted Neuro no focal motor deficits and no sensory deficits noted Psych affect normal Appearance: appropriate Assessment & Plan Assessment/Plan (1) Encounter for screening for malignant neoplasm of colon: PLAN: She was explained alternatives, risk, benefits including outstanding bleeding, infection, sepsis, perforation, need for emergency or urgent . She will have an ASA of 2.
--- NOTE | 2023-02-22 10:00 | COLBX_PTH ---
PATIENT: MIGUEL ANGEL REYES LOC: EN U#:[id number] AGE/SX: 52/F ROOM: RE02/22/[address]: Dr. Baljinder Wang DO : 1970 BED: DIS: 02/22/2023 SPEC #: [id number] RECD: 02/22/23 11:57 STATUS: ROBERT XIOMY #: [id number] ADRIANA: 02/22/23 10:[address]: Baljinder Wang DEPT: SURGICAL PATHOLOGY RECD BY: Kamila Bullard ENTERED: 02/22/23 11:58 SP TYPE: COLON BX ESTEFANI DR: Dr. Eduin Cortez MD Tissues: A - COLON BIOPSY B - Sigmoid colon biopsy Procedures: Surgery Specimen Level IV HEADER OPERATION: Colonoscopy - open access with polypectomy PRE-OP DIAGNOSIS: Screening TISSUE SUBMITTED: A - Hepatic flexure polyp, B - Sigmoid colon polyp MICROSCOPIC DIAGNOSIS A. Colonic polyp at hepatic flexure, biopsy: Tubular adenoma. B. Sigmoid colon polyp, biopsy: Fragments of tubular adenoma. AM:thelma 02/23/2023 MICROSCOPIC DESCRIPTION Slides are reviewed. GROSS DESCRIPTION A - Received in fixative is one container labeled with the patient's name and designated hepatic flexure polyp. The specimen consists of a polypoid fragment of melo tissue measuring 2.0 x 1.0 x 0.6 cm. The specimen is serially sectioned and totally submitted in one cassette. B - Received in fixative is one container labeled with the patient's name and designated sigmoid colon polyp. The specimen consists of two irregular fragments of light melo soft tissue that in aggregate measure 1.0 x 0.5 x 0.1 cm. The specimen is totally submitted in one cassette. / AM:thelma 02/22/2023 TC:5 [facility]: [id number] x2
[2023-02-22 10:50] VITALS: BP 103/56; BP 146/76; PULSE 88; RESP 16; TEMP 35.9; O2SAT 100
--- NOTE | 2023-02-22 10:50 | OP.CCLET_ITS ---
02/22/2023 Eduin Cortez [address] [place] [address] Re : Colonoscopy procedure for [facility] Dear Dr. Cortez This procedure was performed on February. My impressions and recommendations are as follows: Impressions : - Two 1 to 2 mm polyps in the sigmoid colon and at the hepatic flexure, removed with a hot snare. Resected and retrieved. - Diverticulosis in the recto-sigmoid colon and in the sigmoid colon. Recommendations : - Discharge patient to home. - Resume previous diet. - Continue present medications. - Await pathology results. - Repeat colonoscopy in 3 years for screening purposes. My findings are described in the full procedure note, which is enclosed. If I can be of further assistance, please feel free to contact me at . Sincerely, Baljinder Wang, 02/22/2023 10:50:13 AM This report has been signed electronically.
--- NOTE | 2023-02-22 10:50 | OP.COLON_ITS ---
Patient Name: Jacqueline Kearney Procedure Date: 02/22/2023 10:20 AM Date of : 1970 Age: 52 Procedure: Colonoscopy Indications: Screening for colorectal malignant neoplasm Providers: Baljinder Wang DO Medicines: Monitored Anesthesia Care Patient Profile: This is a 52 year old female. Refer to note in patient chart for documentation of history and physical. Last Colonoscopy: none. The patient's first colonoscopy is today. Complications: No immediate complications. Procedure: Pre-Anesthesia Assessment: - Prior to the procedure, a History and Physical was performed, and patient medications and allergies were reviewed. The risks and benefits of the procedure and the sedation options and risks were discussed with the patient. All questions were answered and informed consent was obtained. Patient identification and proposed procedure were verified by the physician. Mental Status Examination: normal. Prophylactic Antibiotics: The patient does not require prophylactic antibiotics. Prior Anticoagulants: The patient has taken no anticoagulant or antiplatelet agents. ASA Grade Assessment: II - A patient with mild systemic disease. After reviewing the risks and benefits, the patient was deemed in satisfactory condition to undergo the procedure. The anesthesia plan was to use monitored anesthesia care (MAC). Immediately prior to administration of medications, the patient was re-assessed for adequacy to receive sedatives. The heart rate, respiratory rate, oxygen saturations, blood pressure, adequacy of pulmonary ventilation, and response to care were monitored throughout the procedure. The physical status of the patient was re-assessed after the procedure. After I obtained informed consent, the scope was passed under direct vision. Throughout the procedure, the patient's blood pressure, pulse, and oxygen saturations were monitored continuously. The pediatric colonoscope was introduced through the anus and advanced to the cecum, identified by appendiceal orifice and ileocecal valve. The colonoscopy was performed without difficulty. The patient tolerated the procedure well. The quality of the bowel preparation was adequate. The ileocecal valve, appendiceal orifice, and rectum were photographed. Scope In: 10:23:37 AM Scope Withdrawal Time 0 hours 14 minutes 39 seconds Scope Out: 10:42:07 AM Total Procedure Duration Time 0 hours 18 minutes 30 seconds Findings: The perianal and digital rectal examinations were normal. Two sessile polyps were found in the sigmoid colon and hepatic flexure. The polyps were 1 to 2 mm in size. These polyps were removed with a hot snare. Resection and retrieval were complete. Verification of patient identification for the specimen was done. Estimated blood loss was minimal. Multiple small and large-mouthed diverticula were found in the recto-sigmoid colon and sigmoid colon. Impression: - Two 1 to 2 mm polyps in the sigmoid colon and at the hepatic flexure, removed with a hot snare. Resected and retrieved. - Diverticulosis in the recto-sigmoid colon and in the sigmoid colon. Recommendation: - Discharge patient to home. - Resume previous diet. - Continue present medications. - Await pathology results. - Repeat colonoscopy in 3 years for screening purposes. Procedure Code(s): --- Professional --- 28437, Colonoscopy, flexible; with removal of tumor(s), polyp(s), or other lesion(s) by snare technique CPT copyright 2021 [employer]. All rights reserved. The codes documented in this report are preliminary and upon certified procedural coder review may be revised to meet current compliance requirements. Baljinder Wang DO 02/22/2023 10:50:13 AM This report has been signed electronically. Number of Addenda: 0 Note Initiated On: 02/22/2023 10:20 AM
[2023-02-22 10:55] VITALS: BP 114/58; BP 146/76; PULSE 83; RESP 16; O2SAT 100
[2023-02-22 11:00] VITALS: BP 114/58; BP 146/76; PULSE 82; RESP 16; O2SAT 100
[2023-02-22 11:05] VITALS: BP 135/85; BP 146/76; PULSE 82; RESP 16; TEMP 36.1; O2SAT 100
[2023-02-22 11:15] VITALS: BP 146/76
== END 2023-02-22 12:01 | disposition home or self-care (01) ==
LOC: EN 08:24 → AC 08:32
PROVIDERS: PCP Family Medicine; Referring Provider Family Medicine; Visit Provider Internal Medicine Gastroenterology
PROC: 0DJD8ZZ Inspection of Lower Intestinal Tract, Via Natural or Artificial Opening Endoscopic (ICD-10-PCS; CPT 45378; principal; 2023-02-22 09:55)
DX: Z12.11 Encounter for screening for malignant neoplasm of colon (principal); D12.5 Benign neoplasm of sigmoid colon; D12.3 Benign neoplasm of transverse colon; K57.30 Diverticulosis of large intestine without perforation or abscess without bleeding; Z86.16 Personal history of COVID-19
CPT/HCPCS: 45385; 88305; J7120; J2405

== ENCOUNTER → 2024-03-05 | Outpatient (CLI) | payer OTHER, SELFPAY ==
--- NOTE | 2024-03-04 16:43 | BI_ITS ---
MAMMOGRAPHY - BILATERAL SCREENING 3-D TOMOSYNTHESIS REASON FOR EXAM: Female, 53 years old. Routine screening PERTINENT HISTORY: No significant family history. TECHNIQUE: 2-D mammograms and 3-D Tomosynthesis of the breast (s) were performed. CAD was performed. COMPARISON: 02/11/2016, 02/08/2023 FINDINGS: The breast composition is heterogeneously dense that can obscure small breast masses. Scattered benign calcifications are seen. No dense spiculated masses or suspicious microcalcifications are identified. No architectural distortion is identified. There is no skin thickening or retraction. There has been no significant change since the prior study. BI/SCRN MAMM (CAD)W/JACKIE BILAT IMPRESSION: No mammographic signs of malignancy. Routine yearly mammograms recommended. ASSESSMENT CATEGORY: BIRADS Category 1: Negative. A letter regarding these results will be sent to the patient by the facility within 30 days. FOLLOW UP RECOMMENDATION: Yearly follow up mammogram recommended. (A) Approximately 10% of breast cancers are not detected by mammography. A normal mammogram should not delay biopsy of a clinically suspicious abnormality. Electronically Signed: Lalo Paniagua MD at 10:50 EST ,
== END | disposition home or self-care (01) ==
PROVIDERS: PCP Family Medicine; Referring Provider Family Medicine; Visit Provider Family Medicine
DX: Z12.31 Encounter for screening mammogram for malignant neoplasm of breast (principal)
CPT/HCPCS: 77063; 77067

== ENCOUNTER → 2024-07-24 | Outpatient (CLI) | payer OTHER, SELFPAY ==
[2024-07-24 13:01] LABS: Hematocrit 29.5 % (37-47); Hemoglobin 10.3 g/dL (12.0-15.0); Mean Corp Hgb Conc 34.9 g/dL (32-36); Mean Corpuscular Hgb 27.8 pg (27.0-32.0); Mean Corpuscular Volume 79.5 fL (81-99); Mean Platelet Vol. 10.3 fl (6.2-12.0); Platelet Count 234 K/mm3 (150-450); RBC Distribution Width CV 15.9 % (11.6-14.6); RBC Distribution Width SD 45.8 fl (35.1-43.9); Red Blood Count 3.71 M/mm3 (4.2-5.4); White Blood Count 5.6 K/mm3 (4.4-11.0)
[2024-07-24 13:50] LABS: ALB/GLOB Ratio 1.2 RATIO (0.9-2.4); AST(SGOT) 18 U/L (<=31); Alanine Aminotransfer ALT/SGPT 11 U/L (<=34); Albumin, Serum 4.4 g/dL (3.5-5.0); Alkaline Phosphatase 74 U/L (35-104); Anion Gap 12 (5-15); BUN 14 mg/dL (4-19); Calcium,Total 9.8 mg/dL (7.6-11.0); Carbon Dioxide 25.4 mmol/L (21.0-32.0); Chloride 106 mmol/L (98-108); Creatinine, Serum 0.91 mg/dL (0.70-1.20); EST Glomerular Filtration Rate 75 (>60); Globulin 3.7 g/dL (2.2-4.2); Glucose 95 mg/dL (70-99); Potassium 4.1 mmol/L (3.3-5.1); Protein, Total 8.1 g/dL (5.9-8.4); Sodium Level 143 mmol/L (133-145); Total Bilirubin 1.02 mg/dL (0.00-1.30)
[2024-07-24 13:52] LABS: Vitamin D,25 Hydroxy 58.7 ng/mL (30-100)
== END | disposition home or self-care (01) ==
LOC: MFPLAB 10:49
PROVIDERS: PCP Family Medicine; Referring Provider Family Medicine; Visit Provider Family Medicine
DX: D57.1 Sickle-cell disease without crisis (principal); E55.9 Vitamin D deficiency, unspecified
CPT/HCPCS: 36415; 80053; 82306; 85027

== ENCOUNTER → 2025-03-09 | Outpatient (CLI) | payer OTHER, SELFPAY ==
--- NOTE | 2025-03-09 08:30 | BI_ITS ---
EXAM: SCRN MAMM (CAD)W/JACKIE BILAT DATE: 03/09/2025 CLINICAL HISTORY: F, Age 54 y/o , NEED FOR SCREENING FOR BREAST CANCER TECHNIQUE: Procedure Code: [id number] Modality: MG Procedure: SCRN MAMM (CAD)W/JACKIE BILAT COMPARISON: Prior exam(s) dated 03/04/2024 and 02/08/2023. FINDINGS: TISSUE DENSITY: The breasts are heterogeneously dense, which may obscure small masses. Bilateral Breast Mammographic Findings: Benign-appearing round microcalcifications are seen in both breasts. Stable nodular masslike densities are seen in both breasts. No suspicious masses, suspicious cluster of microcalcifications, architectural distortion or secondary signs of malignancy is identified in either breast. BI/SCRN MAMM (CAD)W/JACKIE BILAT IMPRESSION: Benign screening mammogram OVERALL FINAL ASSESSMENT BI-RADS 2: BENIGN RECOMMENDATION: Routine annual follow-up in 1 Year Additional Recommendation none A letter with findings and recommendations will be mailed to the patient. Reading Location: [id number]
== END | disposition home or self-care (01) ==
LOC: OPBI 08:21
PROVIDERS: PCP Family Medicine
DX: Z12.31 Encounter for screening mammogram for malignant neoplasm of breast (principal)
CPT/HCPCS: 77063; 77067